=== PATIENT | male | born 1950 | race Caucasian/White ===

== ENCOUNTER → 2016-08-02 | Outpatient (REF) | payer BC ==
[2016-08-02 15:14] LABS: ALBUMIN 3.8 GM/DL (3.2-5.2); ALBUMIN/GLOBULIN RATIO 1.03 (1.00-1.93); ALKALINE PHOSPHATASE 70 U/L (45-117); ALT/SGPT 17 U/L (12-78); ANION GAP 7 MEQ/L (8-16); AST/SGOT 16 U/L (15-37); BILIRUBIN,TOTAL 0.6 MG/DL (0.2-1.0); BLOOD UREA NITROGEN 29 MG/DL (7-18); CALCIUM LEVEL 9.1 MG/DL (8.8-10.2); CARBON DIOXIDE LEVEL 30 MEQ/L (21-32); CHLORIDE LEVEL 104 MEQ/L (98-107); CHOLESTEROL LEVEL 177 MG/DL (<200); CREATININE FOR GFR 0.74 MG/DL (0.70-1.30); GLOMERULAR FILTRATION RATE > 60.0 (>49); GLUCOSE, FASTING 91 MG/DL (80-110); POTASSIUM SERUM 4.3 MEQ/L (3.5-5.1); SODIUM LEVEL 141 MEQ/L (136-145); TOTAL PROTEIN 7.5 GM/DL (6.4-8.2); TRIGLYCERIDES LEVEL 160 MG/DL (<150)
== END ==
LOC: M SFHCLACO 08:02
PROVIDERS: ATTEND Physician Assistant
DX: R97.20 Elevated prostate specific antigen [PSA] (principal); I10 Essential (primary) hypertension; E78.2 Mixed hyperlipidemia; F41.1 Generalized anxiety disorder; L40.0 Psoriasis vulgaris; F17.210 Nicotine dependence, cigarettes, uncomplicated

== ENCOUNTER → 2016-11-12 | Outpatient (CLI) | payer BC ==
[~2016-11-12] MED LIST: ALEV220T26 PO; CALC0.009 TOP; FISH1000 PO; NORCOTAB PO; PARO20TA3 PO
[2016-11-12 17:03] LABS: BASO % 0.4 % (0.0-1.0); EOS # 0.2 K/mm3 (0.0-0.50); EOS % 2.5 % (0.0-3.0); LARGE UNSTAINED CELL # 0.2 K/mm3 (0.0-0.4); LYMPH # 1.6 K/mm3 (1.5-4.5); LYMPH % 16.2 % (24.0-44.0); MEAN CORPUSCULAR HEMOGLOBIN 33.1 pg (27.0-33.0); MEAN CORPUSCULAR HGB CONC 34.7 g/dl (32.0-36.5); MEAN CORPUSCULAR VOLUME 95.3 fl (80.0-96.0); MONO # 0.6 K/mm3 (0.0-0.8); MONO % 6.6 % (0.0-5.0); NEUTROPHILS # 6.9 K/mm3 (1.8-7.7); NEUTROPHILS % 72.3 % (36.0-66.0); PLATELET COUNT, AUTOMATED 394 k/mm3 (150-450); WHITE BLOOD COUNT 9.5 K/mm3 (4.0-10.0)
[2016-11-12 18:10] LABS: ERYTHROCYTE SEDIMENTATION RATE 13 mm/hr (0-20)
== END ==
LOC: M LAB 16:19
PROVIDERS: ATTEND Orthopaedic Surgery
DX: M25.552 Pain in left hip (principal)

== ENCOUNTER → 2016-11-21 | Outpatient (CLI) | payer BC ==
--- NOTE | 2016-11-21 13:41 | REP ---
TRIPLE PHASE BONE SCAN OF THE HIPS: Following the administration of 21.8 mCi technetium 99m MDP, patient's hips are imaged in the flow phase in the anterior and posterior projections. There is symmetrical blood flow bilaterally. Immediate blood pool and 2-hour delayed images are performed of the hips in the anterior, posterior, both anterior and posterior oblique, and both lateral projections. There are photopenic areas in the proximal femurs bilaterally compatible with metallic prostheses. There is mild increased blood pooling and more intense increased delayed uptake in the greater trochanter of the proximal left femur adjacent to the photopenic prosthesis. No other definite abnormal uptake is seen in the visualized osseous structures. IMPRESSION: Mild increased blood pooling with focal increased delayed uptake in the greater trochanter of the proximal left femur. This is directly adjacent to a photopenic hip prosthesis. I cannot exclude some degree of loosening of the left hip prosthesis. Subacute stress fracture is also a possibility. Signed by Baljeet Hendricks MD 11/21/2016 04:56 P
== END ==
LOC: M RAD 08:33
PROVIDERS: ATTEND Orthopaedic Surgery
DX: M25.552 Pain in left hip (principal)
CPT/HCPCS: 78315; A9503

== ENCOUNTER → 2017-01-07 | Outpatient (CLI) | payer BC ==
[2017-01-07 11:08] LABS: MEAN CORPUSCULAR HEMOGLOBIN 31.8 pg (27.0-33.0); MEAN CORPUSCULAR HGB CONC 33.7 g/dl (32.0-36.5); MEAN CORPUSCULAR VOLUME 94.4 fl (80.0-96.0); RED CELL DISTRIBUTION WIDTH 13.4 % (11.5-14.5); WHITE BLOOD COUNT 10.9 10^3/uL (4.0-10.0)
[2017-01-07 11:18] LABS: INR 0.94
[2017-01-07 11:40] LABS: ALBUMIN 3.9 GM/DL (3.2-5.2); ALBUMIN/GLOBULIN RATIO 1.08 (1.00-1.93); ALKALINE PHOSPHATASE 73 U/L (45-117); ALT/SGPT 17 U/L (12-78); ANION GAP 4 MEQ/L (8-16); AST/SGOT 15 U/L (15-37); BILIRUBIN,TOTAL 0.4 MG/DL (0.2-1.0); BLOOD UREA NITROGEN 24 MG/DL (7-18); CALCIUM LEVEL 9.1 MG/DL (8.8-10.2); CARBON DIOXIDE LEVEL 31 MEQ/L (21-32); CHLORIDE LEVEL 107 MEQ/L (98-107); CREATININE FOR GFR 0.73 MG/DL (0.70-1.30); GLOMERULAR FILTRATION RATE > 60.0 (>49); GLUCOSE, FASTING 92 MG/DL (80-110); POTASSIUM SERUM 4.6 MEQ/L (3.5-5.1); SODIUM LEVEL 142 MEQ/L (136-145); TOTAL PROTEIN 7.5 GM/DL (6.4-8.2)
--- NOTE | 2017-01-07 12:24 | ECGEPIP ---
Stationary ECG Study [facility] Test Date: 2017-01-07 Pat Name: ABDI LUA Department: Room: - Gender: M Ncqa Specialist: RODRIGO : 1950 Requested By: Joni Delvalle Order Number: [id number] Reading MD: Gauri Sierra Measurements Intervals [place] Rate: 63 P: 38 UT: 160 QRS: 64 QRSD: 113 T: 49 QT: 419 QTc: 431 Interpretive Statements SINUS RHYTHM POSSIBLE INFERIOR MYOCARDIAL INFARCTION, Qs don't APPEAR PATHOLOGIC T WAVE ABN AGAIN SEEN C/W 06/03/15 MILD EARLY REPOLAR CHANGES Electronically Signed On 01-07-2017 12:24:00 EDT by Gauri Sierra
--- NOTE | 2017-01-08 01:35 | REP ---
Arthritis. Technique: PA and lateral. Comparison: 03/05/2008. Findings: Mediastinum and cardiac silhouette are within normal limits. Lung rizvi demonstrate chronic COPD and scattered scarring / interstitial changes. No acute consolidation, effusion, or pneumothorax. Skeletal structures are intact. Impression: Advanced COPD and emphysematous changes. Signed by Reynaldo Mccullough MD 01/08/2017 01:26 A
== END ==
LOC: M ADMPAT 09:45
PROVIDERS: ATTEND Orthopaedic Surgery
DX: Z01.818 Encounter for other preprocedural examination (principal); M16.12 Unilateral primary osteoarthritis, left hip

== ENCOUNTER → 2017-01-17 | Outpatient (CLI) | payer BC, MEDICARE ==
[~2017-01-17] MED LIST changes: +ISOVUE-370 76% 100ML VIAL (Q9967) As Ordered ONE
--- NOTE | 2017-01-18 04:50 | REP ---
Clinical: Microscopic hematuria and pulsatile abdominal mass. Technique: Axial precontrast, contrast enhanced, and delayed images of the abdomen and pelvis using 100 ml Isovue 370 intravenous contrast material with coronal and sagittal re-formations. Comparison: None. Findings: A partially thrombosed infrarenal abdominal aortic aneurysm begins approximately 2.2 cm below the solitary left renal artery (two right renal arteries identified) and extends through the bilateral common iliac arteries to their bifurcations. Aneurysm measures approximately 6.8 x 6.9 cm maximal diameter with the right iliac artery measuring 3.4 cm diameter and the left iliac artery measuring 3.7 cm diameter. Partially calcified intima and atherosclerotic changes throughout the aorta and iliac arteries noted. No periaortic stranding, inflammatory changes or fluid is identified. The celiac axis, and superior mesenteric artery along with the solitary left and two right renal arteries appear normal and demonstrate appropriate enhancement without atherosclerotic changes or narrowing/stenosis. The inferior mesenteric artery is difficult to identify along the root of the above-mentioned aneurysm. The kidneys demonstrate bilateral cysts measuring up to 4.4 cm at the lower pole right kidney and 2 cm mid pole left kidney. There is no associated hydroureteronephrosis, intrarenal or obstructing ureteral calculi and no perinephric stranding, renal mass lesion identified. The prostate gland is enlarged with mass effect on the base of the bladder but incompletely evaluated due to significant metallic streak artifact from bilateral hip prostheses. Liver, spleen, pancreas, gallbladder, and bilateral adrenal glands are normal. The enteric system is without obstruction or acute inflammatory process. Colonic and sigmoid diverticulosis noted without acute diverticulitis. No ascites. No free air. No obvious intraperitoneal or retroperitoneal adenopathy. Surrounding musculoskeletal structures demonstrate age-related degenerative changes without focal osseous abnormality. Lung bases demonstrate chronic interstitial changes and mild emphysematous disease. Impression: 1. Large partially thrombosed infrarenal abdominal aortic aneurysm extending through the bilateral common iliac arteries and measuring 6.9 cm maximal diameter. No associated periaortic inflammatory stranding or fluid currently identified. 2. Bilateral renal cysts measuring up to 4.4 cm. No evidence for nephroureterolithiasis or hydroureteronephrosis. 3. Diverticulosis without acute diverticulitis. 4. Enlarged prostate gland incompletely evaluated. Signed by Reynaldo Mccullough MD 01/18/2017 04:41 A
== END ==
LOC: M RAD 13:32
PROVIDERS: ATTEND Family Medicine
DX: R31.29 Other microscopic hematuria (principal); R19.00 Intra-abdominal and pelvic swelling, mass and lump, unspecified site

== ENCOUNTER 2017-01-23 12:41 | Inpatient (IN) | payer BC, MEDICARE ==
[~2017-01-23] VITALS: Ht 182.9 cm; Wt 77.9 kg
[~2017-01-23 12:41] MED LIST changes: -ISOVUE-370 76% 100ML VIAL (Q9967) As Ordered ONE; -NORCOTAB PO
[2017-01-23] MEDS ORDERED: MOM 30ML SUSPENSION UDC PO PRN (13:30)
[2017-01-23] MEDS ORDERED: BISACODYL 10 MG SUPP PR PRN (13:30)
[2017-01-23 13:50] VITALS: BP 133/73
[2017-01-23 14:52] LABS: INR 1.03
[2017-01-23 14:53] LABS: BASO % 0.3 % (0.0-1.0); EOS # 0.2 10^3/uL (0.0-0.50); EOS % 1.3 % (0.0-3.0); IMMATURE GRANULOCYTE % 0.3 % (0-0); LYMPH # 1.5 10^3/uL (1.5-4.5); LYMPH % 12.6 % (24.0-44.0); MEAN CORPUSCULAR HEMOGLOBIN 31.7 pg (27.0-33.0); MEAN CORPUSCULAR HGB CONC 33.7 g/dl (32.0-36.5); MEAN CORPUSCULAR VOLUME 94.2 fl (80.0-96.0); MONO % 7.8 % (0.0-5.0); NEUTROPHILS # 9.5 10^3/uL (1.8-7.7); NEUTROPHILS % 77.7 % (36.0-66.0); PLATELET COUNT, AUTOMATED 321 10^3/uL (150-450); RED CELL DISTRIBUTION WIDTH 13.1 % (11.5-14.5); WHITE BLOOD COUNT 12.2 10^3/uL (4.0-10.0)
[2017-01-23 15:01] LABS: ANION GAP 8 MEQ/L (8-16); BLOOD UREA NITROGEN 18 MG/DL (7-18); CALCIUM LEVEL 9.2 MG/DL (8.8-10.2); CARBON DIOXIDE LEVEL 29 MEQ/L (21-32); CHLORIDE LEVEL 104 MEQ/L (98-107); CREATININE FOR GFR 0.67 MG/DL (0.70-1.30); GLOMERULAR FILTRATION RATE > 60.0 (>49); GLUCOSE, FASTING 92 MG/DL (80-110); POTASSIUM SERUM 4.4 MEQ/L (3.5-5.1); SODIUM LEVEL 141 MEQ/L (136-145)
[2017-01-23 16:00] VITALS: BP 130/79
[2017-01-23 20:00] VITALS: BP 112/70
[2017-01-23] MEDS: SENOKOT S TAB PO SCH (20:58)
[2017-01-23] MEDS: FAMOTIDINE 20 MG TAB PO SCH (20:58)
[2017-01-23] MEDS: DOCUSATE SODIUM 100 MG CAP PO SCH (20:58)
--- NOTE | 2017-01-23 21:05 | ECGEPIP ---
Stationary ECG Study [facility] Test Date: 2017-01-23 Pat Name: ABDI LUA Department: Room: [place] [address] Gender: M Actuarial Clerk: LIDIA : 1950 Requested By: Agustín Albarran Order Number: [id number] Reading MD: Agustín Aparicio Measurements Intervals [place] Rate: 56 P: 27 MN: 162 QRS: 73 QRSD: 114 T: 63 QT: 448 QTc: 434 Interpretive Statements Sinus bradycardia Prominent precordial voltage with ST/T-wave abnormalities Probable LVH Small inferior Q waves, could not rule out prior inferior injury. No change from 01/07/17 Electronically Signed On 01-23-2017 21:05:06 EDT by Agustín Aparicio
--- NOTE | 2017-01-23 23:10 | ECHO ---
DATE OF PROCEDURE: 01/23/2017 AGE: 66 GENDER: Male HEIGHT: 72 inches WEIGHT: 170 pounds BODY SURFACE AREA: 1.99 m2 PATIENT LOCATION: Inpatient, ICU, room 3201 REFERRING PHYSICIAN: Agustín Morse MD INDICATION: Abnormal EKG. 2-D MEASUREMENTS: RV; 4.2 cm LV: 4.9 cm Septum: 1.2 cm Posterior wall: 1.2 cm Aortic root: 3.7 cm LA: 3.6 cm LVEF: 65% DOPPLER MEASUREMENTS: AV: 2.3 m/s LVOT: 0.95 m/s LVOT diameter: 2.5 cm Mean AV gradient: 12 mmHg MV-E: 52, A: 89, EA ratio: 0.6 Early mitral deceleration time: 384 ms E prime: 5, A prime: 12, E/E prime ratio: 10.5 PV: 0.8 m/s Pulmonary artery acceleration time: 127 ms RVSP: 32 mmHg IVC: 1.5 cm COMMENTS: Normal sinus rhythm without interventricular conduction disturbance. Left atrial size upper limits of normal. Normal left ventricular size. Right heart chamber sizes were also upper limits of normal. Left ventricle (LV) wall thickness was upper limits of normal to slightly hypertrophied symmetrically. On real-time imaging from the parasternal and apical projections wall motion was symmetrical and normal to hyperkinetic. Slightly thickened mitral annulus, but normal leaflet thickness and excursion with no posterior systolic buckling. Three equal size aortic cusps with asymmetrical thickening of the left and right coronary cusps with question of slight reduction in cusp separation. Normal aortic root size. No apparent intracardiac mass or pericardial effusion. Color flow Doppler study taken from the parasternal and apical projection showed mild to moderate aortic, very mild mitral and mild tricuspid insufficiency. Guided continuous wave Doppler of his aortic valve and pulsed Doppler study of his LV outflow tract taken from the apical long axis and five chamber projection showed a mildly increased peak systolic velocity and mean gradient with dimensionless index of 0.43 - in keeping with some mild calcific aortic stenosis. Pulsed and continuous wave Doppler of his LV inflow tract taken from the apical four-chamber projection showed normal diastolic filling velocities against mitral stenosis. There was more prominent late diastolic/atrial dependent filling pattern. Diastolic dysfunction was confirmed by a prolonged early mitral deceleration time and tissue Doppler of his mitral annulus. However, current estimated mean left atrial pressure was upper limits of normal. Pulsed continuous wave Doppler of his pulmonary trunk showed a normal peak systolic velocity against RV outflow tract obstruction. Pulmonary artery acceleration time was also normal against an elevated pulmonary vascular resistance. Guided continuous wave Doppler of his tricuspid valve allowed our estimation of his right ventricular systolic pressure (upper limits of normal to mildly increased). Normal IVC size and collapse against an elevated central venous pressure. CONCLUSIONS: Borderline concentric left ventricle hypertrophy with preserved systolic function. Left atrial size upper limits of normal with Doppler evidence of an impairment of LV diastolic function but currently normal estimated mean left atrial pressure. Borderline increased right heart chamber sizes with normal wall motion and Doppler evidence of borderline to mildly increased pulmonary arterial pressure. Normal IVC size and collapse against an elevated central venous pressure. Asymmetrical calcific aortic stenosis of a mild degree with mild - moderate insufficiency. Normal aortic root size. Mildly thickened mitral annulus with very mild insufficiency.
[2017-01-24] VITALS (7 sets, daily range): BP systolic 110–146; BP diastolic 57–87
[2017-01-24] MEDS: ACETAMINOPHEN TAB 650MG DOSE (2X325MG) PO PRN (04:39)
[2017-01-24] MEDS: DOCUSATE SODIUM 100 MG CAP PO SCH ×2 (08:19→21:57)
[2017-01-24] MEDS: FAMOTIDINE 20 MG TAB PO SCH ×2 (08:19→21:57)
[2017-01-24] MEDS: SENOKOT S TAB PO SCH ×2 (08:20→21:57)
[2017-01-24] MEDS ORDERED: HEPARIN SOD (PORCINE) 5000 UNITS/ML VIAL As Ordered ONE ×4 (16:14→19:17)
--- NOTE | 2017-01-24 16:20 | HPEPDOC ---
General Date of Admission Jan 23, 2017 at 13:33 Primary Care Physician: Lamberto Hickey M.D. Attending Physician: Agustín Morse MD Chief Complaint The patient is a 66-year-old male with 6.9 cm AAA. Source: Patient Exam Limitations: No limitations Timing/Duration: Unsure Severity: Severe Associated Symptoms: Denies Symptoms History of Present Illness Patient is a 66-year-old male who was undergoing evaluation for preoperative assessment for a left hip revision when it was noted that the patient had a palpable aneurysm on his abdominal exam. Patient was sent for a CT scan which demonstrated a 6.9 cm infrarenal abdominal aortic and rhythm and bilateral common iliac artery aneurysms. Patient was evaluated and noted to be a good candidate for an endovascular abdominal aortic aneurysm repair. Patient was admitted to the hospital immediately from the office for endovascular abdominal aortic aneurysm repair. Home Medications Scheduled Calcipotriene (Calcipotriene) 0.005 % Cre, 0 TOP DAILY, (Reported) Fish Oil (Fish Oil) 1,000 Mg Cap, 360 MG PO DAILY, (Reported) Paroxetine (Paroxetine HCl) 20 Mg Tab, 20 MG PO DAILY, (Reported) Allergies Coded Allergies: Bupivacaine (Verified Adverse Reaction, Intermediate, DECREASED HR, 06/07/15 ) Past Medical History Medical History COPD Coronary artery disease Anxiety Surgical History Varicose vein stripping Bilateral hip replacements right knee arthroscopically Multiple inguinal hernia repairs Umbilical hernia repair Femoral hernia repair Prostate biopsy Family History Father is with a history of coronary artery disease, prostate cancer. Mother is with a history of coronary artery disease Brother with a history of coronary artery disease Sr. with a history of coronary artery disease and diabetes Social History * Smoker: current smoker, greater than 1 pack/day, cigarettes Alcohol: occationally Drugs: denies Recent Travel/Sick Contacts: Denies: Recent travel, Recent sick contacts Psychosocial History: No pertinent psych hx, Anxiety Review of Symptoms Constitutional: Denies: Chills, Fever, Malaise, Night Sweats, Weakness, Fatigue , Weight Loss, Lethargy, Other Eyes: Denies: Pain, Vision change, Conjunctivae inflammation, Eyelid inflammation, Redness, Other ENT: Denies: Head Aches, Ear Pain, Dysphagia, Sinus Congestion, Post Nasal Drip , Sore Throat, Epistaxis, Other Symptoms Skin: Denies: Rash, Lesions, Jaundice, Bruising, Itching, Dry, Breakdown, Nail Changes, Other Pulmonary: Reports: Dyspnea, Denies: Cough, Pleuritic Chest Pain, Other Symptoms Cardiovascular: Denies: Chest Pain, Palpitations, Orthopnea, Paroxysmal Noc. Dyspnea, Edema, Lt Headedness, Other Symptoms Gastrointestinal: Denies: Nausea, Vomiting, Abdominal Pain, Diarrhea, Constipation, Melena, Hematochezia, Other Symptoms Genitourinary: Denies: Dysuria, Frequency, Incontinence, Hematuria, Retention, Other Symptoms Hematologic: Denies: Bruising, Bleeding Excessively, Petecchia, Purpura, Enlarged Lymph Nodes, Other Hematologic Endocrine: Denies: Polydipsia, Polyphagia, Polyuria, Heat Intolerance, Cold Intolerance, Other Endocrine Sx Musculoskeletal: Reports: Joint Pain, Denies: Neck Pain, Back Pain, Shoulder Pain, Arm Pain, Hand Pain, Leg Pain, Foot Pain, Muscle Pain, Spasms, Other Symptoms Neurological: Denies: Weakness, Numbness, Incoordination, Change in speech, Confusion, Seizures, Other Symptoms Psych: Denies: Mood Normal, Anxiety, Depression, Memory Issues, Thoughts of Self Harm, Anger, Thoughts of Harming Other, Other Psych Physical Examination General Exam: Positive: Alert, No Acute Distress Eye Exam: Positive: PERRLA, EOMI ENT Exam: Positive: Atraumatic, Mucous membr. moist/pink, Pharynx Normal Neck Exam: Positive: Supple, +2 carotid pulse wo bruit Chest Exam: Positive: Clear to auscultation, Normal air movement Heart Exam: Positive: Rate Normal, Normal S1, Normal S2 Telemetry: Positive: No significant arrhythmia Abdomen Exam: Positive: Normal bowel sounds Extremity Exam: Negative: Clubbing, Cyanosis, Edema, Normal pulses, Tenderness , Swelling, Other Skin Exam: Positive: Nl turgor and temperature, Negative: Rash, Breakdown, Lesion, Pruritus, Other skin issue Neuro Exam: Positive: Normal Gait, Normal Speech, Strength at 5/5 X4 ext, Cranial Nerves 3-12 NL, Reflexes 2+ Psych Exam: Positive: Mental status NL, Mood NL, Oriented x 3 Vital Signs Vital Signs Date Time Temp Pulse Resp B/P (MAP) Pulse Ox O2 Delivery O2 Flow Rate FiO2 01/24/17 12:00 99.4 66 19 135/87 (103) 95 Room Air Plan / VTE VTE Prophylaxis Ordered?: Yes Plan Plan Patient is a 58-year-old male with an 6.9 cm abdominal aortic aneurysm which is amenable to endovascular repair. Risks benefits and alternative treatment options were discussed with the patient. Benefits included but were not limited to repair of aortic aneurysm and prevention of rupture and . Alternative treatment options included but were not limited to no intervention. Risks included but were not limited to infection, bleeding, renal failure requiring hemodialysis, possible need for open abdominal aortic aneurysm repair, cerebrovascular accident, myocardial infarction, pulmonary embolus, deep venous thrombosis, retroperitoneal hematoma, loss of limb, loss of life and poor outcome. IVF: Initiate Diet: Make NPO Activity: Continue Current Pt and Family Services: Home Care Diagnostics: Check Labs, EKG, TTE Anticipated Discharge: Home Agustín Morse MD Jan 24, 2017 16:20
[2017-01-24] MEDS ORDERED: ISOVUE-300 61% 50ML VIAL (Q9967) As Ordered ONE ×2 (16:23→18:20)
[2017-01-24] MEDS ORDERED: MIDAZOLAM INJ 2 MG/2 ML VIAL (J2250) As Ordered ONE (16:39)
[2017-01-24] MEDS ORDERED: fentaNYL 100 MCG/2 ML INJECTION (J3010) As Ordered ONE (16:40)
[2017-01-24] MEDS ORDERED: PROPOFOL 500 MG/50 ML VIAL As Ordered ONE (16:41)
[2017-01-24] MEDS ORDERED: LIDOCAINE 2% INJ 100 MG/5 ML SDV (FOR ANES.) As Ordered ONE (16:44)
[2017-01-24] MEDS ORDERED: LIDOCAINE 1% MDV INJ 50 ML VIAL As Ordered ONE (17:50)
[2017-01-24] MEDS ORDERED: ceFAZolin 2 GM/D5W 50 ML IV BAG (J0690) As Ordered ONE (18:06)
[2017-01-24] MEDS ORDERED: PROPOFOL 200 MG/20 ML VIAL As Ordered ONE (18:27)
[2017-01-24] MEDS ORDERED: NORCO, ANEXSIA 5/325MG TABLET (HYDROcodone/ACETAMINOPHEN) PO PRN (20:15)
[2017-01-24] MEDS ORDERED: PERCOCET 5MG/325MG TAB As Ordered ONE (20:27)
[2017-01-24] MEDS ORDERED: METOCLOPRAMIDE INJ 10MG/2ML VIAL (J2765) IV PRN (20:30)
[2017-01-24] MEDS ORDERED: ONDANSETRON 4MG/2ML VIAL (J2405) IV PRN (20:30)
[2017-01-24] MEDS ORDERED: PERCOCET 5MG/325MG TAB PO PRN (20:30)
[2017-01-24] MEDS ORDERED: LR 1,000 ML IV SCH (20:30)
[2017-01-24] MEDS ORDERED: fentaNYL 100 MCG/2 ML INJECTION (J3010) IV PRN (20:30)
[2017-01-24] MEDS: LR 1,000 ML IV SCH (21:58)
[2017-01-25] VITALS (9 sets, daily range): BP systolic 104–173; BP diastolic 63–74
[2017-01-25 05:37] LABS: MEAN CORPUSCULAR HEMOGLOBIN 31.3 pg (27.0-33.0); MEAN CORPUSCULAR HGB CONC 33.8 g/dl (32.0-36.5); MEAN CORPUSCULAR VOLUME 92.5 fl (80.0-96.0); PLATELET COUNT, AUTOMATED 243 10^3/uL (150-450); RED CELL DISTRIBUTION WIDTH 12.8 % (11.5-14.5); WHITE BLOOD COUNT 16.1 10^3/uL (4.0-10.0)
[2017-01-25 05:54] LABS: ANION GAP 8 MEQ/L (8-16); BLOOD UREA NITROGEN 16 MG/DL (7-18); CALCIUM LEVEL 8.4 MG/DL (8.8-10.2); CARBON DIOXIDE LEVEL 26 MEQ/L (21-32); CHLORIDE LEVEL 105 MEQ/L (98-107); CREATININE FOR GFR 0.68 MG/DL (0.70-1.30); GLOMERULAR FILTRATION RATE > 60.0 (>49); GLUCOSE, FASTING 116 MG/DL (80-110); SODIUM LEVEL 139 MEQ/L (136-145)
[2017-01-25] MEDS ORDERED: ONDANSETRON 4MG/2ML VIAL (J2405) IV PRN (07:30)
[2017-01-25] MEDS: LR 1,000 ML IV SCH (07:50)
[2017-01-25] MEDS: PARoxetine 20 MG TAB PO SCH (08:34)
[2017-01-25] MEDS: SENOKOT S TAB PO SCH ×2 (08:35→21:23)
[2017-01-25] MEDS: FAMOTIDINE 20 MG TAB PO SCH ×2 (08:35→21:23)
[2017-01-25] MEDS: DOCUSATE SODIUM 100 MG CAP PO SCH ×2 (08:35→21:23)
[2017-01-25] MEDS ORDERED: SLF 3 ML SYR IV PRN (13:45)
[2017-01-25] MEDS: SLF 3 ML SYR IV SCH ×2 (14:00→21:23)
[2017-01-25] MEDS: ACETAMINOPHEN TAB 650MG DOSE (2X325MG) PO PRN (23:12)
[2017-01-26] MEDS: SLF 3 ML SYR IV SCH (05:28)
[2017-01-26] MEDS: ACETAMINOPHEN TAB 650MG DOSE (2X325MG) PO PRN (05:36)
[2017-01-26 05:56] LABS: MEAN CORPUSCULAR HEMOGLOBIN 31.4 pg (27.0-33.0); MEAN CORPUSCULAR VOLUME 92.5 fl (80.0-96.0); PLATELET COUNT, AUTOMATED 232 10^3/uL (150-450); RED CELL DISTRIBUTION WIDTH 12.6 % (11.5-14.5); WHITE BLOOD COUNT 16.7 10^3/uL (4.0-10.0)
[2017-01-26 06:00] VITALS: BP 127/67
[2017-01-26 06:14] LABS: ANION GAP 7 MEQ/L (8-16); BLOOD UREA NITROGEN 13 MG/DL (7-18); CALCIUM LEVEL 8.5 MG/DL (8.8-10.2); CARBON DIOXIDE LEVEL 27 MEQ/L (21-32); CHLORIDE LEVEL 104 MEQ/L (98-107); CREATININE FOR GFR 0.68 MG/DL (0.70-1.30); GLOMERULAR FILTRATION RATE > 60.0 (>49); GLUCOSE, FASTING 109 MG/DL (80-110); SODIUM LEVEL 138 MEQ/L (136-145)
[2017-01-26] MEDS: PARoxetine 20 MG TAB PO SCH (08:19)
[2017-01-26] MEDS: SENOKOT S TAB PO SCH (08:19)
[2017-01-26] MEDS: FAMOTIDINE 20 MG TAB PO SCH (08:19)
[2017-01-26] MEDS: DOCUSATE SODIUM 100 MG CAP PO SCH (08:19)
[2017-01-26] MEDS ORDERED: NORCOTAB PO (09:24)
--- NOTE | 2017-02-08 12:47 | RO ---
DATE OF PROCEDURE: 01/24/2017 PREPROCEDURE DIAGNOSIS: 6.9 cm abdominal aortic aneurysm, right common iliac artery aneurysm, left common iliac artery aneurysm. POSTPROCEDURE DIAGNOSIS: 6.9 cm abdominal aortic aneurysm, right common iliac artery aneurysm, left common iliac artery aneurysm. PROCEDURE: Endovascular abdominal aortic aneurysm repair with an SURGEON: Tammy Morse MD HEALTHCARE SCIENCE SPECIALIST: None. ANESTHESIA: Local MAC. PROCEDURE: Endovascular abdominal aortic aneurysm repair with an Endurant IIs bifurcated endograft with a 36 x 14 x 103 bifurcated graft deployed by the right femoral approach, bilateral femoral arterial exposures, left iliac limb extension with a 16 x 16 x 124 iliac limb, left iliac limb extension with a 16-28 x 124 iliac limb, right iliac limb extension with a 16-28 x 156 flared Endurant iliac limb. INDICATION: The patient is a 66-year-old male who was seen and evaluated for hip surgery who was found to have a 6.9 cm abdominal aortic aneurysm, as well as bilateral common iliac artery aneurysms. The patient was evaluated and felt to be a good candidate for endovascular. Risks, benefits and alternative treatment options were discussed with the patient. ESTIMATED BLOOD LOSS: 200 mL IV FLUIDS: 1200 mL HEPARIN: 7000 units, followed by 2000 unit bolus. URINE OUTPUT: 200 mL via [place]. COMPLICATIONS: None DRAINS: None SPECIMENS: None IMPLANTS: Endurant IIs bifurcated endograft measuring 36 x 14 x 103 via right femoral approach, left iliac limb extension with a 16 x16 x 1.4 and 16-28 x 124 flared Endurant iliac limb, right iliac limb extension with a 16-28 x 156 flared Endurant iliac limb. FLUORO TIME: 60 minutes and 18 seconds. CONTRAST: 75 mL. DESCRIPTION OF PROCEDURE: The patient was taken to the operating room, placed supine on the operating room table and bilateral open femoral exposures were performed. Sheath to wires were then placed into the femoral arteries, which had been controlled proximal to distal using . The patient was given heparin. The graft was then placed below the level of the renal arteries under serial aortograms performed confirming intrarenal positioning. The contralateral limb was cannulated and then extended using two Endurant iliac limbs, a 16-16 x 124 and a 16-28 x 124 extending the limbs down to the bifurcation of the external and internal iliac arteries. The right iliac limb was extended with a 16-28 x 156 Endurant iliac limb down to the bifurcation of the external and internal iliac arteries. Final angiogram showed the renal arteries to be widely patent with good flow to the graft and into both iliac limbs. The femoral arteries were then closed using #6-0 Prolene suture to close the arteriotomies. The deeper layer was closed with #2-0 Vicryl. The skin was closed with shekhar. All instrument, sponge and needle counts were correct at the end of the case. There were no complications. Dr. Morse was present for and directed the entire case. The patient was transferred to the recovery room, awake, alert, extubated and in stable condition. RADIOLOGIC SUPERVISION INTERPRETATION: The initial aortogram showed the aorta to be widely patent. There was aneurysmal aorta and iliac arteries. The graft was placed below the level of the renal arteries with serial aortograms performed to ensure infrarenal positioning, the contralateral limb was cannulated and then extended using a 16-16 x 124 and a 16-28 x 124 Endurant iliac limb. The right iliac limb was extended with a 16-28 x 156 Endurant iliac limb. Final angiogram showed the renal artery to be widely patent with good flow through the graft in both iliac limbs and into the external and internal iliac arteries bilaterally.
--- NOTE | 2017-02-11 11:53 | DSES ---
DATE OF ADMISSION: 01/23/2017 DATE OF DISCHARGE: 01/26/2017 ADMITTING DIAGNOSIS: Abdominal aortic aneurysm. DISCHARGE DIAGNOSIS: Abdominal aortic aneurysm. PROCEDURE: Endovascular abdominal aortic aneurysm repair. HOSPITAL COURSE: The patient was admitted and underwent an endovascular abdominal aortic aneurysm repair and did well. Discharged on 01/26/2017 with instructions to followup with me in the office.
== END 2017-01-26 11:37 | disposition home or self-care (01) | DRG 173 ==
LOC: M ICU 13:33 → M MSPAV 01-25 14:15
PROVIDERS: ADMIT Surgery Vascular Surgery; ATTEND Surgery Vascular Surgery
PROC: 04V03DZ Restriction of Abdominal Aorta with Intraluminal Device, Percutaneous Approach (ICD-10-PCS; principal; 2017-01-24 14:11)
DX: I71.4 Abdominal aortic aneurysm, without rupture (principal); I72.3 Aneurysm of iliac artery; J44.9 Chronic obstructive pulmonary disease, unspecified; I25.10 Atherosclerotic heart disease of native coronary artery without angina pectoris; F41.9 Anxiety disorder, unspecified; Z96.641 Presence of right artificial hip joint; Z96.642 Presence of left artificial hip joint; F17.210 Nicotine dependence, cigarettes, uncomplicated

== ENCOUNTER → 2017-02-20 | Outpatient (CLI) | payer BC, MEDICARE ==
[~2017-02-20] MED LIST changes: +NORCOTAB PO
[2017-02-20 16:00] LABS: BASO # 0.1 10^3/uL (0.0-0.2); BASO % 0.5 % (0.0-1.0); EOS # 0.3 10^3/uL (0.0-0.50); EOS % 2.4 % (0.0-3.0); IMMATURE GRANULOCYTE % 0.3 % (0-0); LYMPH # 1.8 10^3/uL (1.5-4.5); LYMPH % 16.5 % (24.0-44.0); MEAN CORPUSCULAR HEMOGLOBIN 30.6 pg (27.0-33.0); MEAN CORPUSCULAR HGB CONC 32.1 g/dl (32.0-36.5); MEAN CORPUSCULAR VOLUME 95.2 fl (80.0-96.0); MONO # 0.8 10^3/uL (0.0-0.8); MONO % 6.9 % (0.0-5.0); NEUTROPHILS # 8.1 10^3/uL (1.8-7.7); NEUTROPHILS % 73.4 % (36.0-66.0); PLATELET COUNT, AUTOMATED 421 10^3/uL (150-450); RED CELL DISTRIBUTION WIDTH 12.9 % (11.5-14.5)
[2017-02-20 16:12] LABS: INR 0.99
[2017-02-20 16:27] LABS: ALBUMIN 3.5 GM/DL (3.2-5.2); ALBUMIN/GLOBULIN RATIO 0.83 (1.00-1.93); ALKALINE PHOSPHATASE 88 U/L (45-117); ALT/SGPT 20 U/L (12-78); ANION GAP 6 MEQ/L (8-16); AST/SGOT 15 U/L (7-37); BILIRUBIN,TOTAL 0.2 MG/DL (0.2-1.0); BLOOD UREA NITROGEN 23 MG/DL (7-18); CALCIUM LEVEL 8.8 MG/DL (8.8-10.2); CARBON DIOXIDE LEVEL 32 MEQ/L (21-32); CHLORIDE LEVEL 103 MEQ/L (98-107); CREATININE FOR GFR 0.78 MG/DL (0.70-1.30); GLOMERULAR FILTRATION RATE > 60.0 (>49); GLUCOSE, FASTING 133 MG/DL (80-110); SODIUM LEVEL 141 MEQ/L (136-145); TOTAL PROTEIN 7.7 GM/DL (6.4-8.2)
== END ==
LOC: M LABDRAW1 14:02
PROVIDERS: ATTEND Family Medicine
DX: Z01.812 Encounter for preprocedural laboratory examination (principal)

== ENCOUNTER → 2017-02-25 | Outpatient (CLI) | payer BC ==
--- NOTE | 2017-02-25 11:48 | REP ---
Clinical: Abdominal aortic aneurysm. Comparison: 05/04/2015. Findings: Intraluminal aortoiliac stent is identified extending to the aortic bifurcation. Color evaluation demonstrates satisfactory flow through the stent. The excluded abdominal aorta demonstrates thrombus and continued flow and measures: Proximal aorta 5.1 x 4.7 cm. Mid aorta 6.9 x 6.6 cm. Distal aorta 3.2 x 5.8 cm. Right common iliac artery 2.6 x 3.2 cm. Left common iliac artery 2.8 x 3.1 cm. Impression: Patent abdominal aortic aneurysm with patent intraluminal aortic stent extending to the proximal bilateral common iliac arteries. Signed by Reynaldo Mccullough MD 02/25/2017 11:39 A
== END ==
LOC: M RAD 09:05
PROVIDERS: ATTEND Surgery Vascular Surgery
DX: I71.4 Abdominal aortic aneurysm, without rupture (principal)

== ENCOUNTER 2017-02-28 11:32 | Inpatient (IN) | payer BC, MEDICARE ==
--- NOTE | 2017-02-20 20:10 | HPE ---
DATE OF ADMISSION: 02/28/2017 HISTORY OF PRESENT ILLNESS: This is a pleasant male with continuing symptomatic left hip pain with a history of left hip osteoarthritis who is scheduled for a left hip arthroplasty revision and likely polyethylene exchange. He was rescheduled secondary to other medical issues. He was followed by Dr. Morse, and there was concern about some sort of aneurysm. The patient notes that he had a procedure to deal with this aneurysm, and now he has been cleared. This is hearsay. I do not have any reports yet from Dr. Morse and/or Dr. Hickey, although the patient states he has been cleared by both. I previously performed a preoperative history and physical on 01/17/2017, and the patient is denying any other change outside of the above-mention of aneurysm. ALLERGIES: MARCAINE previously made him bradycardic. MEDICAL MEDICATION LIST: Includes: - paroxetine HCl 20 mg one by mouth every day - calcipotriene 0.005% - Aleve 220 mg one capsule twice a day as needed - Additionally, he has a prescription for Coumadin to be taken the night before surgery. MEDICAL PROBLEM LIST: Includes: 1. Symptomatic left hip osteoarthritis. 2. Anxiety and depression. PAST SURGICAL HISTORY: Includes: 1. Hip replacement. 2. Hernia repair. 3. Meniscal repair. SOCIAL HISTORY: He is a current smoker but states he is down to like three cigarettes a day. Denies alcohol intake or illicit drugs. FAMILY HISTORY: Positive for arthritis. REVIEW OF SYSTEMS: Denies chest pain, shortness of breath, dyspnea on exertion, fever, chills, malaise, upper respiratory or urinary tract symptoms. PHYSICAL EXAMINATION: Blood pressure (BP) 144/86, temperature 97.4, height 70 inches, weight 180, body mass index (BMI) 25.8. He is a pleasant, overweight white male in no acute distress. He is alert and oriented times three. Mood and affect are appropriate. Left hip irritability through range; otherwise, benign, noninfectious looking bilateral lower extremities. Bowels soft, nontender times four. Chest rises symmetrically. Regular rate and rhythm. Lungs: Clear to auscultation. Neck: Supple. Negative jugular venous distention (JVD) or bruits. Normocephalic. Labs were reviewed. Urine auto was 12, BUN 24, anion gap 4, GFR was greater than 60. White count 10.1. Urine culture was reviewed and no growth of clinical significance, 1 organism. Nasal and sinus culture: Normal milly present. Chest x-ray: Advanced chronic obstructive pulmonary disease (COPD) and emphysematous changes, as read by Dr. Mccullough . EKG: Sinus rhythm, as read by Dr. Mark. Consent was reviewed by Dr. Delvalle, signed on 11/29/2016. IMPRESSION: 1. Continuing symptomatic left total hip arthroplasty with poly wear. 2. Patient consented for a left total hip arthroplasty revision per Dr. Joni Delvalle. Medical optimization per Dr. Hickey and Dr. Morse, which I have not seen their recent clearances. 3. yardage caller operating room (OR) 2 grams IV Kefzol in OR. 4. Sequential compression devices (SCD) and thromboembolic deterrent stockings (TEDs) in OR.
[2017-02-28] VITALS (7 sets, daily range): BP systolic 150–183; BP diastolic 80–93
[~2017-02-28] VITALS: Ht 182.9 cm; Wt 77.5 kg
[2017-02-28] MEDS ORDERED: LIDOCAINE 1% MDV 20ML VIAL SC ONE (12:00)
[2017-02-28] MEDS ORDERED: LR 1,000 ML IV ONE (12:00)
[2017-02-28] MEDS ORDERED: TRANEXAMIC ACID 100 MG/ML 10ML VIAL As Ordered ONE (12:57)
[2017-02-28] MEDS ORDERED: ceFAZolin 1GM INJ (J0690) As Ordered ONE (12:57)
[2017-02-28] MEDS ORDERED: MIDAZOLAM INJ 2 MG/2 ML VIAL (J2250) As Ordered ONE (13:02)
[2017-02-28] MEDS ORDERED: PROPOFOL 200 MG/20 ML VIAL As Ordered ONE ×3 (13:02→14:44)
[2017-02-28] MEDS ORDERED: fentaNYL 100 MCG/2 ML INJECTION (J3010) As Ordered ONE (13:02)
--- NOTE | 2017-02-28 13:03 | IPN ---
DATE: 02/28/2017 The patient is seen and examined. He wished to go ahead with a left total hip arthroplasty. He is still having some mild symptoms of some subluxation in the hip. He has polyethylene wear. He had his aneurysm repaired and was cleared for surgical treatment. He understands the nature of the procedure. The risks of bleeding, infection, damage to nerves, vessels, persistent pain, wear loosening, dislocation, leg length inequality, blood clots or medical problems, persistent soreness, , among others. He understands. We are hoping to just change the head and the polyethylene, but if there is something else loose that might require a bigger surgery.
[2017-02-28] MEDS ORDERED: ePHEDrine SULFATE 25 MG/5 ML(5MG/ML) SYRINGE As Ordered ONE (14:05)
[2017-02-28] MEDS ORDERED: PHENYLEPHRINE INJ 10MG/ML VIAL (J2370) As Ordered ONE (14:14)
[2017-02-28] MEDS ORDERED: MORPHINE 1MG/ML IN 0.9% NACL 100ML IV BAG As Ordered ONE (15:37)
[2017-02-28] MEDS ORDERED: ONDANSETRON 4MG/2ML VIAL (J2405) IV PRN ×3 (16:00)
[2017-02-28] MEDS ORDERED: MORPHINE 1MG/ML IN 0.9% NACL 100ML IV BAG IV PRN (16:00)
[2017-02-28] MEDS ORDERED: fentaNYL 100 MCG/2 ML INJECTION (J3010) IV PRN (16:00)
[2017-02-28] MEDS ORDERED: ACETAMINOPHEN TAB 650MG DOSE (2X325MG) PO PRN (16:00)
[2017-02-28] MEDS ORDERED: FLEET ENEMA PR PRN (16:00)
[2017-02-28] MEDS ORDERED: NALOXONE INJ 0.4 MG/1 ML VIAL (J2310) IV PRN (16:00)
[2017-02-28] MEDS ORDERED: diphenhydrAMINE INJ 50MG/ML VIAL (J1200) IV PRN (16:00)
[2017-02-28] MEDS ORDERED: EPIDURAL/PCA KEYS XX PRN (16:00)
[2017-02-28] MEDS ORDERED: NALBUPHINE HCL 10 MG/ML AMP (J2300) IV PRN (16:00)
[2017-02-28] MEDS ORDERED: LR 1,000 ML IV SCH ×2 (16:00)
--- NOTE | 2017-02-28 16:28 | CR ---
DATE OF SERVICE: 02/28/2017 PROGRESS NOTE/CONSULTATION HISTORY: Mr. Bowers is admitted for revision of hip. He is status post total hip arthroplasty and is scheduled for revision on the left. He is currently seen in recovery. He is awake, alert, and denies discomfort. Some twinges at the hip but otherwise doing well. He denies chest pain, dyspnea, cough, or nausea. CURRENT MEDICATIONS: - fish oil capsule one a day - Taclonex ointment twice a day for psoriasis. - Aleve 220 mg two tablets daily for arthritic pain - Paxil 20 mg daily for history of generalized anxiety disorder PAST MEDICAL HISTORY: Remarkable for: 1. Labile hypertension. I believe to be normal at high. High only during office visits. 2. History of emphysema via chest x-ray. 3. History of smoking, formerly a pack per day, now three cigarettes per day. 4. Status post endograft repair by Dr. 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 5. Mild aortic stenosis by echo in December 2016, mildly increased pulmonary artery systolic pressure. SURGICAL HISTORY: 1. Umbilical hernia and three inguinal hernia repairs. 2. Right knee cartilage repair in 2011. 3. Bilateral hip surgeries in 2003. 4. Vein strippings in 2000. 5. Prostate biopsy 2015. FAMILY HISTORY: Father of brain cancer, mother of heart disease. ALLERGIES: Patient has supposed history of allergy to MARCAINE. REVIEW OF SYSTEMS: Before coming to hospital was negative. No chest pain, nausea, palpitations, change in weight, fevers, chills, sweats, polyuria, polydipsia. No nausea, vomiting, constipation, dysuria, or fainting spells. No seizure disorders. Preoperative blood pressure is 132/70 on the office visit with a pulse of 90, oxygen saturation 97% on room air. Most recent vital signs preoperatively: 153/83, pulse 61, respiratory rate 18, 97.3 temperature. SOCIAL HISTORY: Continues to smoke about three cigarettes per day and alcohol use negative. PHYSICAL EXAMINATION: Patient is alert, pleasant, cooperative, conversant. Moves upper extremities without limitations. He is still recovering from spinal anesthesia. Oropharynx: Edentulous. No neck mass. No tracheal shift. Auscultation of the chest shows equal expansion. He has a 3/6 systolic murmur noted over the left sternal border and at the base. Rhythm is regular. Abdomen soft, flat, nontender. Bowel sounds are present. No guarding. No rebound. No distention. There is no bruising or bleeding in evidence. Neurologic exam: Normal movement of upper extremities. Cranial nerve are intact. No sensory deficit in upper extremities or face. Mental status: He is alert, oriented. Mood neutral. Lower extremities still affected by spinal anesthesia. LABORATORY DATA: Preoperative testing showed a white count of 11,000, hemoglobin 13.3. Differential was done as part of the preoperative, which showed 73% segmented neutrophils, eosinophils 2.4%, platelet count was normal at 421,000. Coagulation studies were normal. Prothrombin time and PTT were done preoperatively. These were normal. Sodium and potassium were normal as well as creatinine at 0.78. BUN was 23. Liver enzymes were within normal limits as well. Anion gap was 6 with a low [id number] ratio and a normal albumin level. Also he was noted to have a mild anemia, which is thrombocytic, normochromic with normal renal function. On January 25 his hemoglobin was normal at 15.2. A chest x-ray as not done as part of the preoperative testing at this time, but if we go back to 01/07/2017 in preparation for his vascular surgery, chest x-ray showed advanced emphysematous changes by report and also reported to show chronic obstructive pulmonary disease (COPD). Specifically, patient has relatively flat diaphragms. No cardiomegaly. Bony landmarks are intact and unremarkable other than mild kyphosis. Colonic gas can be seen immediately below the diaphragm on the lateral view. Some aorta tortuosity is suspected. Echocardiogram was done on January 23. Pertinent findings as mentioned above. Mild aortic sclerosis. Elevated pulmonary artery systolic pressure. Normal diastolic filling. There is some mitral stenosis. Borderline concentric left ventricular hypertrophy (LVH) with preserved systolic function. Aortic root was thought to be normal sized. EKG showed a sinus rhythm. Narrow initial negative deflection in II, III, and F. Probably LVH. IMPRESSION: Patient is status post left total hip revision. Seems to be doing well at this point. It does not look that he will require blood pressure management. Will resume his paroxetine that he takes for anxiety. He was on fish oil capsule as a daily measure before surgery. Will leave this off for now. Will also leave off his topical agent for control of his psoriasis. This agent can be resumed after discharge, which I anticipate will be fairly short. Patient might benefit from extra attention to so-called pulmonary toilet in view of his smoking history and emphysematous changes that are suggested by chest x-ray appearance.
[2017-02-28] MEDS ORDERED: WARFARIN SOD 5 MG TAB PO ONE (17:00)
--- NOTE | 2017-02-28 21:03 | RO ---
DATE OF PROCEDURE: 02/28/2017 PREOPERATIVE DIAGNOSIS: Left hip pain, polyethylene wear and some intermittent subluxation status post hip replacement 2003. POSTOPERATIVE DIAGNOSIS: Left hip pain, polyethylene wear and some intermittent subluxation status post hip replacement 2003. Fairly large cavities of osteolysis around the greater trochanter and proximal femur. PROCEDURE: Left hip revision total hip arthroplasty with revision of the head and polyethylene liner to a +8.5 36 ball and a standard +4 Hitchcock polyethylene with bone grafting around the acetabulum and around the proximal femur. SURGEON: Dr. Joni Delvalle [employer] SYSTEMS ADMINISTRATOR: Dr. Antoinette Garces ANESTHESIA: Spinal. ESTIMATED BLOOD LOSS: 200 mL. COMPLICATIONS: None. INDICATIONS: This is a 66-year-old man who about 13 years ago had a left total hip arthroplasty and had done well with it up until the recent months when he started having some discomfort and a sense that his hip was trying to shift at times. He had some asymmetric polyethylene wear, and a bone scan showed some increased uptake around the greater trochanter, which I was suspicious might represent some osteolysis. He wished to go ahead with a revision hip replacement. He understood the nature of this, the risks of bleeding, infection, damage to nerves, vessels, persistent pain, wear, loosening, dislocation, leg length inequality, blood clots, medical problems, fracture, among others. DESCRIPTION OF PROCEDURE: The patient was taken to the operating room and placed in the right lateral decubitus position on the Battiest positioner. All areas were padded appropriately. Left hip was prepped and draped in usual sterile fashion. A time-out was performed. I then created a longitudinal incision through the previous incision over the side of his hip. Sharp dissection was carried down through subcutaneous tissue, controlled hemostasis with the cautery. I then incised the fascia junior and gradually exposed the abductors. Approximately the anterior 40% of the abductors were divided off the anterior aspect of the femur. It was noted that he had a fairly significant amount of atrophy and even some pull off of this abductors along the midportion. We gradually exposed the femoral neck and the acetabulum, and the polyethylene as we gradually externally rotated the femur exposing the proximal femur. We then took great care in dissecting around the acetabulum, removing the osteolysis and the polyethylene wear debris around the acetabulum in its entirety, exposing the entire polyethylene. Controlled hemostasis with the cautery. We then dislocated the hip and removed the femoral head. It was evident that there was significant osteolysis around the proximal femur and in a cavitary area around the greater trochanter above the prosthesis and extending down below it, which was carefully curetted out and irrigated. There was also another large pocket along the medial calcar, which was carefully curetted out back to stable bone, and there was a solid shell of bone remaining. We did decide to go ahead bone graft this. The acetabular liner was removed with the polyethylene removal device and the apex hole eliminator was removed, and it was evident that there was also a large cavity behind the acetabular component. The acetabular component was well seated and fixed. We did curette this cystic material and polyethylene wear debris from behind the acetabulum and irrigated it out copiously with antibiotic irrigation. We then injected some DBX bone graft substitute in the hole, which filled this defect nicely. The apex hole eliminator was then replaced. We carefully irrigated and then replaced the locking ring and the polyethylene liner with a 62 x 36 neutral liner. We had trialed a neutral liner first and did a hip reduction with various different neck lengths and we were very pleased with the 8.5 36 ball and the neutral liner. We did not feel that we needed the 10 degrees liner. So, the actual liner was then inserted after the ring was replaced, and we impacted it down to make sure it was well seated. I then placed a [place] around the lip of the acetabular liner, and it was well seated and secure. We then directed our attention back to the proximal femur, and we had selected the 8.5 neck length with a 36 ball; we dried the taper and impacted this ball on. We also bone grafted these defects around the proximal femur with a combination of 5 mL of DBX and 15 mL of crushed cancellus bone graft. This filled the defects nicely. I placed some of DBX in at the end just to help contain the bone graft and the defects. Copious irrigation had been performed. We were very pleased with the position and stability of the hip. He had minimal shuck in full extension. Excellent stability in external rotation, extension and excellent stability in flexion and internal rotation. Final irrigation was performed. I did use some of the TXA solution. We had repaired the abductor back with a couple stitches being placed through the bone and I did my best to repair the somewhat deficient abductor that was along the midportion of the trochanter. The more superior and inferior portions along the trochanter had reasonably good tissue, and this was able to be repaired with #1 Vicryl suture. Then irrigated, repaired the fascia junior with interrupted #1 Vicryl suture and a running Stratafix #1 suture. This was a watertight closure. I did put the hip through a range of motion, again was very pleased with the stability and the soft tissue repair. Irrigated, closed the subcu with #2-0 Vicryl and the skin with shekhar. Sterile dressing was applied, and he was taken to recovery in stable condition. His leg length appeared to be symmetric postoperatively. The plan will be routine postop for hip arthroplasty. I think we will allow weightbearing as tolerated and postoperative IV antibiotics etc. The wet process assistant head miller was instrumental in holding retractors and assisting in reducing and dislocating the hip, and assisting with dissection around the acetabulum and the proximal femur, and assisting with the bone grafting and wound closure. He was also instrumental in helping make decisions along the way.
[2017-03-01] VITALS: BP 132/62
[2017-03-01 06:00] VITALS: BP 128/62
[2017-03-01 07:59] LABS: MEAN CORPUSCULAR HEMOGLOBIN 31.4 pg (27.0-33.0); MEAN CORPUSCULAR HGB CONC 34.1 g/dl (32.0-36.5); PLATELET COUNT, AUTOMATED 313 10^3/uL (150-450); RED CELL DISTRIBUTION WIDTH 13.3 % (11.5-14.5); WHITE BLOOD COUNT 11.8 10^3/uL (4.0-10.0)
[2017-03-01] MEDS: ALBUTEROL SULFATE 2.5 MG/0.5 ML INH NEB SOLN NEB SCH ×4 (08:00→23:49)
[2017-03-01 08:22] LABS: ALBUMIN 2.8 GM/DL (3.2-5.2); ALKALINE PHOSPHATASE 70 U/L (45-117); ALT/SGPT 13 U/L (12-78); ANION GAP 7 MEQ/L (8-16); AST/SGOT 13 U/L (7-37); BILIRUBIN,TOTAL 0.3 MG/DL (0.2-1.0); BLOOD UREA NITROGEN 19 MG/DL (7-18); CALCIUM LEVEL 8.7 MG/DL (8.8-10.2); CARBON DIOXIDE LEVEL 29 MEQ/L (21-32); CHLORIDE LEVEL 103 MEQ/L (98-107); CREATININE FOR GFR 0.82 MG/DL (0.70-1.30); GLOMERULAR FILTRATION RATE > 60.0 (>49); GLUCOSE, FASTING 105 MG/DL (80-110); POTASSIUM SERUM 4.1 MEQ/L (3.5-5.1); SODIUM LEVEL 139 MEQ/L (136-145); TOTAL PROTEIN 6.8 GM/DL (6.4-8.2)
--- NOTE | 2017-03-01 08:35 | IPNPDOC ---
Subjective Date Seen The patient was seen on 03/01/17. Subjective Chief Complaint/HPI The patient is a 66-year-old male admitted with a reason for visit of Complication Left Total Hip Implant. Events since last encounter Developed hypoxemai overnight - improved with oxygen. Denies SOB or cough. Has some nausea with vomiting yesterday Constitutional: Denies: Chills, Fever Pulmonary: Denies: Dyspnea, Cough Cardiovascular: Denies: Chest Pain, Palpitations Gastrointestinal: Reports: Nausea, Vomiting, Denies: Abdominal Pain, Diarrhea, Constipation Objective Physical Examination General Exam: Positive: Alert, No Acute Distress Chest Exam: Positive: Diminished, Negative: Rales, Rhonchi, Wheezing Heart Exam: Positive: Rate Normal, Regular Rhythm, Murmurs (DAYLIN at apex) Abdomen Exam: Positive: Normal bowel sounds, Soft, Negative: Tenderness Extremity Exam: Negative: Edema Assessment /Plan Problems (1) Hypoxemia Status: Acute Problem Text: Diminished lung sounds on exam today - likely related to advanced COPD/emphysema Hypoxemia likely related to underlying COPD possibly underlying TERRENCE and anesthesia and narcotics Get CXR Cont O2 via NC Add nebs Encourage IS (2) COPD (chronic obstructive pulmonary disease) Status: Chronic Problem Text: Normally does not have dyspnea or chronic cough Not on inhalers normally No wheezing currently (3) Nicotine abuse Status: Chronic Response to Treatment: Stable (4) Mild aortic stenosis Status: Chronic Response to Treatment: Stable (5) HTN (hypertension) Status: Chronic Response to Treatment: Stable Plan/VTE VTE Prophylaxis Ordered?: Yes (Coumadin per ortho) VS, I&O, 24H, Fishbone Vital Signs/I&O Vital Signs Date Time Temp Pulse Resp B/P (MAP) Pulse Ox O2 Delivery O2 Flow Rate FiO2 03/01/17 06:00 98.7 78 15 128/62 (84) 96 Nasal Cannula 2.0 I&O- Last 24 Hours up to 6 AM 03/02/17 06:00 Intake Total 50 ml Balance 50 ml Laboratory Data 24H LABS Laboratory Tests 2 03/01/17 07:40: Nucleated Red Blood Cells % (auto) 0.0, Anion Gap 7L, Glomerular Filtration Rate > 60.0, Blood Urea Nitrogen 19H, Creatinine 0.82, Sodium Level 139, Potassium Level 4.1, Chloride Level 103, Carbon Dioxide Level 29, Calcium Level 8.7L, Aspartate Amino Transf (AST/SGOT) 13, Alanine Aminotransferase (ALT/SGPT) 13, Alkaline Phosphatase 70, Total Bilirubin 0.3, Total Protein 6.8, Albumin 2.8L, Total Protein (PEP) 6.8, Albumin/Globulin Ratio 0.70L CBC/BMP Laboratory Tests 03/01/17 07:40 Red Blood Count 3.73 L, Mean Corpuscular Volume 92.0, Mean Corpuscular Hemoglobin 31.4, Mean Corpuscular Hemoglobin Concent 34.1, Red Cell Distribution Width 13.3, Calcium Level 8.7 L, Aspartate Amino Transf (AST/SGOT) 13, Alanine Aminotransferase (ALT/SGPT) 13, Alkaline Phosphatase 70, Total Bilirubin 0.3, Total Protein 6.8, Albumin 2.8 L Attending Note Attending Note patient s/p left total hip revision. c/o nausea, likely secondary to narcotic analgesics. transient hypoxia noted. incentive spirometry has been ordered (thrice) No cough, no wheeze, no dyspnea. JEANCARLOS CORDOVA PA-C Mar 01, 2017 08:35 Saravanan Hammer MD Mar 01, 2017 15:34
--- NOTE | 2017-03-01 09:41 | REP ---
Clinical: Hypoxemia. Technique: PA and lateral. Comparison: 01/07/2017. Findings: Diffuse chronic interstitial changes are appreciated. Mediastinum and cardiac silhouette are stable. Superimposed lower lobe atelectasis (right greater than left) is appreciated and small pleural reactions based on lateral radiograph cannot be excluded. Skeletal structures demonstrate osteopenia and degenerative changes. Impression: Superimposed moderate bibasilar atelectasis (right greater than left) with possible small pleural effusion. Signed by Reynaldo Mccullough MD 03/01/2017 09:31 A
--- NOTE | 2017-03-01 09:56 | REP ---
LEFT HIP COMPLETE: 03/01/2017. Clinical history: Status post left total hip arthroplasty. Comparison: CT abdomen and pelvis 01/17/2017. Findings: The two-view show a left total hip arthroplasty with the femoral stem component tightly applied to the [place] bone. Cross table lateral shows skin shekhar adjacent to that left hip. The femoral head component articulates normally with the acetabular cup component. I do not see evidence of acute bony finding. There is subcutaneous air from recent surgery in these clips. Impression: 1. Status post left total hip arthroplasty. The two components are well aligned in relationship to the [place] bone and each other. Signed by Beltran Saab MD 03/01/2017 05:38 P
[2017-03-01] MEDS: SENOKOT S TAB PO SCH ×2 (10:05→21:49)
[2017-03-01] MEDS: PARoxetine 20 MG TAB PO SCH (10:05)
[2017-03-01] MEDS: MIRALAX *UNIT DOSE* 17GM PACKET PO SCH (10:06)
[2017-03-01] MEDS: MOM 30ML SUSPENSION UDC PO SCH (10:06)
[2017-03-01] MEDS: PERCOCET 5MG/325MG TAB PO PRN ×2 (10:06→16:09)
[2017-03-01] MEDS: ONDANSETRON 4 MG TAB (S0181) PO PRN (10:43)
[2017-03-01] MEDS ORDERED: WARFARIN SOD 5 MG TAB PO ONE (17:00)
[2017-03-01 22:00] VITALS: BP 139/78
[2017-03-02 05:51] LABS: MEAN CORPUSCULAR HEMOGLOBIN 30.9 pg (27.0-33.0); MEAN CORPUSCULAR HGB CONC 33.7 g/dl (32.0-36.5); MEAN CORPUSCULAR VOLUME 91.6 fl (80.0-96.0); PLATELET COUNT, AUTOMATED 282 10^3/uL (150-450); RED CELL DISTRIBUTION WIDTH 13.2 % (11.5-14.5); WHITE BLOOD COUNT 12.8 10^3/uL (4.0-10.0)
[2017-03-02 06:00] VITALS: BP 136/76
[2017-03-02 06:10] LABS: INR 1.45
[2017-03-02] MEDS: PERCOCET 5MG/325MG TAB PO PRN ×3 (06:33→17:29)
[2017-03-02] MEDS: ALBUTEROL SULFATE 2.5 MG/0.5 ML INH NEB SOLN NEB SCH ×4 (07:16→20:54)
[2017-03-02] MEDS ORDERED: COUM2.5T17 PO (08:55)
[2017-03-02] MEDS ORDERED: PERC5TAB12 PO (08:55)
[2017-03-02] MEDS: MOM 30ML SUSPENSION UDC PO SCH (09:00)
[2017-03-02] MEDS: MIRALAX *UNIT DOSE* 17GM PACKET PO SCH (09:36)
[2017-03-02] MEDS: PARoxetine 20 MG TAB PO SCH (09:36)
[2017-03-02] MEDS: TAMSULOSIN 0.4 MG CAP PO SCH ×2 (09:36→19:41)
[2017-03-02] MEDS: SENOKOT S TAB PO SCH ×2 (09:36→19:41)
[2017-03-02 14:00] VITALS: BP 165/83
[2017-03-02] MEDS ORDERED: WARFARIN SOD 3 MG TAB PO ONE (17:00)
[2017-03-02 22:00] VITALS: BP 134/75
[2017-03-03] MEDS: ONDANSETRON 4 MG TAB (S0181) PO PRN ×2 (00:47→05:53)
[2017-03-03 05:57] LABS: INR 1.5
[2017-03-03 06:00] VITALS: BP 136/76
[2017-03-03] MEDS ORDERED: MAGNESIUM CITRATE 300 ML BTL PO ONE (07:15)
[2017-03-03] MEDS: ALBUTEROL SULFATE 2.5 MG/0.5 ML INH NEB SOLN NEB SCH ×4 (08:00→23:32)
--- NOTE | 2017-03-03 09:47 | IPNPDOC ---
Subjective Date Seen The patient was seen on 03/03/17. Subjective Chief Complaint/HPI The patient is a 66-year-old male admitted with a reason for visit of Complication Left Total Hip Implant. Events since last encounter Patient states he is starting urinate better, and he has not needed to be catheterized in the past 2 days. He states he is slowly working with PT. Constitutional: Denies: Chills, Fever Pulmonary: Denies: Dyspnea, Cough Cardiovascular: Denies: Chest Pain Gastrointestinal: Denies: Nausea, Vomiting, Abdominal Pain Genitourinary: Denies: Dysuria, Incontinence, Retention Objective Physical Examination General Exam: Positive: Alert, No Acute Distress Chest Exam: Positive: Clear to auscultation, Negative: Rales, Rhonchi, Wheezing Heart Exam: Positive: Rate Normal, Regular Rhythm, Murmurs (DAYLIN at apex) Abdomen Exam: Positive: Normal bowel sounds, Soft, Negative: Tenderness Extremity Exam: Negative: Edema Assessment /Plan Problems (1) Hypoxemia Status: Acute Response to Treatment: Improving Problem Text: Patient has been off of O2 with O2 sat >90% on RA. He is symptomatically improved. Previous hypoxemia was likely related to advanced COPD/emphysema - Encourage IS (2) Urinary retention Status: Acute Response to Treatment: Improving Problem Text: Patient reports that he had some urinary retention post-op ( difficulty initiating stream and dribbling) but this has been gradually improving, and he is voiding normally today. - Continue tamsulosin (3) COPD (chronic obstructive pulmonary disease) Status: Chronic Problem Text: Normally does not have dyspnea or chronic cough Not on inhalers normally No wheezing currently (4) Nicotine abuse Status: Chronic Response to Treatment: Stable (5) Mild aortic stenosis Status: Chronic Response to Treatment: Stable (6) HTN (hypertension) Status: Chronic Response to Treatment: Stable Plan/VTE VTE Prophylaxis Ordered?: Yes (Coumadin per ortho) Plan Ortho has written for discharge once cleared by PT and voiding; patient is doing better today in terms of both of these things, but he does not feel ready to go home. At this point, as BP is controlled and dyspnea has resolved, we will sign off but we are happy to assist if needed. VS, I&O, 24H, Fishbone Vital Signs/I&O Vital Signs Date Time Temp Pulse Resp B/P (MAP) Pulse Ox O2 Delivery O2 Flow Rate FiO2 03/03/17 06:00 98.5 75 18 136/76 (96) 93 Room Air 03/01/17 11:40 2.0 Laboratory Data 24H LABS Laboratory Tests 2 03/03/17 05:23: Prothrombin Time 18.5H, Prothromb Time International Ratio 1.50 MARGARET KEBEDE MD Mar 03, 2017 09:47
[2017-03-03] MEDS ORDERED: MAGNESIUM CITRATE 300 ML BTL PO PRN (10:00)
[2017-03-03] MEDS: MIRALAX *UNIT DOSE* 17GM PACKET PO SCH (10:02)
[2017-03-03] MEDS: MOM 30ML SUSPENSION UDC PO SCH (10:02)
[2017-03-03] MEDS: PARoxetine 20 MG TAB PO SCH (10:02)
[2017-03-03] MEDS: TAMSULOSIN 0.4 MG CAP PO SCH ×2 (10:02→20:28)
[2017-03-03] MEDS: SENOKOT S TAB PO SCH ×2 (10:02→20:28)
[2017-03-03] MEDS: PERCOCET 5MG/325MG TAB PO PRN ×2 (10:03→16:46)
[2017-03-03 14:00] VITALS: BP 150/80
[2017-03-03] MEDS ORDERED: WARFARIN SOD 7.5 MG TAB PO ONE (17:00)
[2017-03-03 22:00] VITALS: BP 160/80
[2017-03-04] MEDS: ONDANSETRON 4 MG TAB (S0181) PO PRN ×2 (00:43→10:01)
[2017-03-04 06:00] VITALS: BP 150/82
[2017-03-04] MEDS: ALBUTEROL SULFATE 2.5 MG/0.5 ML INH NEB SOLN NEB SCH (07:15)
[2017-03-04 07:48] LABS: INR 2.01
[2017-03-04] MEDS ORDERED: FLOM5CAP PO (08:25)
[2017-03-04] MEDS: SENOKOT S TAB PO SCH (09:00)
[2017-03-04] MEDS: MOM 30ML SUSPENSION UDC PO SCH (09:00)
[2017-03-04] MEDS: MIRALAX *UNIT DOSE* 17GM PACKET PO SCH (09:00)
[2017-03-04] MEDS: PARoxetine 20 MG TAB PO SCH (10:01)
[2017-03-04] MEDS: TAMSULOSIN 0.4 MG CAP PO SCH (10:02)
[2017-03-04 14:03] LABS: ALBUMIN 3.45 GM/DL (3.29-5.55); ALBUMIN % 50.7 % (55.8-66.1); GAMMA GLOBULIN % 18.3 % (11.1-18.8)
--- NOTE | 2017-03-06 10:44 | DSES ---
DATE OF ADMISSION: 02/28/2017 DATE OF DISCHARGE: 03/04/2017 DISCHARGE DIAGNOSIS: Left total hip arthroplasty difficulty, status post left total hip arthroplasty revision. HISTORY: This is a 66-year-old male who 13 years ago underwent left total hip arthroplasty. In recent months, he had began to experience pain and subluxation in the left hip. He had elected for surgery for his continued symptoms. PROCEDURE PERFORMED: Left total hip arthroplasty. HOSPITAL COURSE: The patient was admitted on the day of surgery and underwent left total hip arthroplasty revision without complications. On the day of discharge, the patient was doing well. He was up with physical therapy per the protocol. He will use adjusted dose Coumadin and thromboembolic deterrent (GLENN) stockings for 30 days postoperatively for deep vein thrombosis (DVT) prophylaxis and he will use oral medications for pain control. Also, the patient will follow up in the office in 2 weeks for staple removal and wound check. He will resume preoperative medications and diet.
== END 2017-03-04 14:55 | disposition home health service (06) | DRG 301 ==
LOC: M OR 11:32 → M MS5PR 16:44 → M ED INP 03-01 13:45 → M MS5PR 03-01 14:00
PROVIDERS: ADMIT Orthopaedic Surgery; ATTEND Orthopaedic Surgery
PROC: 0SR90JA Replacement of Right Hip Joint with Synthetic Substitute, Uncemented, Open Approach (ICD-10-PCS; principal; 2017-02-28 13:00)
DX: T84.061A Wear of articular bearing surface of internal prosthetic left hip joint, initial encounter (principal); I10 Essential (primary) hypertension; Z79.899 Other long term (current) drug therapy; Z88.8 Allergy status to other drugs, medicaments and biological substances; I35.0 Nonrheumatic aortic (valve) stenosis; J43.9 Emphysema, unspecified; F41.9 Anxiety disorder, unspecified; F32.9 Major depressive disorder, single episode, unspecified; F17.210 Nicotine dependence, cigarettes, uncomplicated; R33.9 Retention of urine, unspecified; Y83.1 Surgical operation with implant of artificial internal device as the cause of abnormal reaction of the patient, or of later complication, without mention of misadventure at the time of the procedure

== ENCOUNTER → 2017-03-14 | Outpatient (REF) | payer BC, MEDICARE ==
[~2017-03-14] MED LIST changes: +COUM2.5T17 PO; +FLOM5CAP PO; +PERC5TAB12 PO
[2017-03-14 12:09] LABS: INR 2.43
== END ==
LOC: M LABDRAW1 09:40
PROVIDERS: ATTEND Orthopaedic Surgery
DX: Z51.81 Encounter for therapeutic drug level monitoring (principal); Z79.01 Long term (current) use of anticoagulants

== ENCOUNTER → 2017-04-09 | Outpatient (REF) | payer BC ==
[2017-04-09 13:35] LABS: BASO # 0.1 10^3/uL (0.0-0.2); BASO % 0.5 % (0.0-1.0); EOS # 0.3 10^3/uL (0.0-0.50); EOS % 2.3 % (0.0-3.0); HEMATOCRIT 44.3 % (42.0-52.0); IMMATURE GRANULOCYTE % 0.4 % (0-0); LYMPH # 1.4 10^3/uL (1.5-4.5); LYMPH % 12.8 % (24.0-44.0); MEAN CORPUSCULAR HEMOGLOBIN 29.6 pg (27.0-33.0); MEAN CORPUSCULAR HGB CONC 31.6 g/dl (32.0-36.5); MEAN CORPUSCULAR VOLUME 93.7 fl (80.0-96.0); MONO # 0.8 10^3/uL (0.0-0.8); MONO % 7.1 % (0.0-5.0); NEUTROPHILS # 8.4 10^3/uL (1.8-7.7); NEUTROPHILS % 76.9 % (36.0-66.0); PLATELET COUNT, AUTOMATED 513 10^3/uL (150-450); RED BLOOD COUNT 4.73 10^6/uL (4.30-6.10); RED CELL DISTRIBUTION WIDTH 13.9 % (11.5-14.5); RETIC HEMOGLOBIN EQUIVALENT 33.1 pg (24-36); RETICULOCYTE # 63.4 10^9/L (17-77); RETICULOCYTE % 1.3 % (0.5-1.5); WHITE BLOOD COUNT 10.9 10^3/uL (4.0-10.0)
[2017-04-09 13:40] LABS: APPEARANCE, URINE CLEAR (CLEAR); BACTERIA, URINE AUTO NEGATIVE (NEGATIVE); BILIRUBIN, URINE AUTO NEGATIVE (NEGATIVE); BLOOD, URINE BLOOD NEGATIVE (NEGATIVE); COLOR, URINE YELLOW (YELLOW); GLUCOSE, URINE (UA) AUTO NEGATIVE (NEGATIVE); KETONE, URINE AUTO NEGATIVE (NEGATIVE); LEUKOCYTE ESTERASE, URINE AUTO NEGATIVE (NEGATIVE); NITRITE, URINE AUTO NEGATIVE (NEGATIVE); PROTEIN, URINE AUTO NEGATIVE (NEGATIVE); RBC, URINE AUTO 7 /HPF (0-3); SPECIFIC GRAVITY URINE AUTO 1.015 (1.002-1.035); SQUAMOUS EPITHELIAL CELL UR AU 0 /HPF (0-6); UROBILINOGEN, URINE AUTO 0.2 mg/dL (0.0-2.0); WBC, URINE AUTO 0 /HPF (0-3)
[2017-04-09 13:47] LABS: ALBUMIN 3.9 GM/DL (3.2-5.2); ALBUMIN/GLOBULIN RATIO 0.91 (1.00-1.93); ALKALINE PHOSPHATASE 81 U/L (45-117); ALT/SGPT 17 U/L (12-78); ANION GAP 7 MEQ/L (8-16); AST/SGOT 16 U/L (7-37); BILIRUBIN,TOTAL 0.4 MG/DL (0.2-1.0); BLOOD UREA NITROGEN 18 MG/DL (7-18); C REACTIVE PROTEIN QUANTITATIV 0.62 MG/DL (0.00-0.30); CALCIUM LEVEL 9.2 MG/DL (8.8-10.2); CARBON DIOXIDE LEVEL 30 MEQ/L (21-32); CHLORIDE LEVEL 102 MEQ/L (98-107); CHOLESTEROL LEVEL 198 MG/DL (<200); CPK CREATINE PHOSPHOKINASE 38 U/L (39-308); CREATININE FOR GFR 0.73 MG/DL (0.70-1.30); FERRITIN 158 NG/ML (26-388); GLOMERULAR FILTRATION RATE > 60.0 (>49); GLUCOSE, FASTING 87 MG/DL (80-110); HDL CHOLESTEROL 38 MG/DL (>40); IRON (FE) 108 UG/DL (65-175); LDL CHOLESTEROL 123.4 MG/DL (<100); MAGNESIUM LEVEL 2.5 MG/DL (1.8-2.4); NON-HDL-C 160 MG/DL; PERCENT SATURATION 30.6 % (19.7-50.0); POTASSIUM SERUM 4.3 MEQ/L (3.5-5.1); SODIUM LEVEL 139 MEQ/L (136-145); TOTAL IRON BINDING CAPACITY 353 UG/DL (250-450); TOTAL PROTEIN 8.2 GM/DL (6.4-8.2); TRIGLYCERIDES LEVEL 183 MG/DL (<150)
[2017-04-09 13:50] LABS: ESTIMATED AVERAGE GLUCOSE 108 MG/DL (60-110); HEMOGLOBIN A1c 5.4 %; VITAMIN B12 LEVEL 1311 PG/ML (247-911)
[2017-04-09 14:23] LABS: CREATININE, URINE 97.5 MG/DL; MALB URINE SIEMENS 9.8 MG/L
[2017-04-10 14:13] LABS: INSULIN LEVEL 9.4 uIU/mL (2.6-24.9)
== END ==
LOC: M SFHCPLAZ 09:11
DX: R73.01 Impaired fasting glucose (principal); E78.2 Mixed hyperlipidemia; I10 Essential (primary) hypertension
CPT/HCPCS: 82550

== ENCOUNTER → 2017-06-28 | Outpatient (REF) | payer BC ==
[2017-06-28 16:06] LABS: BASO # 0.1 10^3/uL (0.0-0.2); BASO % 0.5 % (0.0-1.0); EOS # 0.2 10^3/uL (0.0-0.50); EOS % 1.7 % (0.0-3.0); HEMATOCRIT 45.1 % (42.0-52.0); HEMOGLOBIN 14.7 g/dl (13.5-17.5); IMMATURE GRANULOCYTE % 0.5 % (0-3.0); LYMPH # 1.6 10^3/uL (1.5-4.5); MEAN CORPUSCULAR HEMOGLOBIN 29.5 pg (27.0-33.0); MEAN CORPUSCULAR HGB CONC 32.6 g/dl (32.0-36.5); MEAN CORPUSCULAR VOLUME 90.6 fl (80.0-96.0); MONO # 0.9 10^3/uL (0.0-0.8); MONO % 8.9 % (0.0-5.0); NEUTROPHILS # 7.7 10^3/uL (1.8-7.7); NEUTROPHILS % 73.4 % (36.0-66.0); PLATELET COUNT, AUTOMATED 368 10^3/uL (150-450); RED BLOOD COUNT 4.98 10^6/uL (4.30-6.10); RED CELL DISTRIBUTION WIDTH 14.3 % (11.5-14.5); WHITE BLOOD COUNT 10.5 10^3/uL (4.0-10.0)
[2017-06-28 16:16] LABS: INR 0.94; PROTHROMBIN TIME 12.7 SECONDS (12.4-14.5)
[2017-06-28 16:39] LABS: PTH INTACT 38.1 PG/ML (18.5-88.0); TOTAL 25(OH) VITAMIN D 31.2 NG/ML (30.0-100.0)
[2017-06-28 16:45] LABS: ALBUMIN 4.1 GM/DL (3.2-5.2); ALKALINE PHOSPHATASE 83 U/L (45-117); ALT/SGPT 15 U/L (12-78); ANION GAP 6 MEQ/L (8-16); AST/SGOT 14 U/L (7-37); BILIRUBIN,TOTAL 0.4 MG/DL (0.2-1.0); BLOOD UREA NITROGEN 24 MG/DL (7-18); CARBON DIOXIDE LEVEL 27 MEQ/L (21-32); CHLORIDE LEVEL 106 MEQ/L (98-107); CREATININE FOR GFR 0.79 MG/DL (0.70-1.30); GLOMERULAR FILTRATION RATE > 60.0 (>49); GLUCOSE, FASTING 82 MG/DL (70-100); POTASSIUM SERUM 4.5 MEQ/L (3.5-5.1); PSA SCREENING 8.78 NG/ML (< 4.0); SODIUM LEVEL 139 MEQ/L (136-145); TOTAL PROTEIN 8.2 GM/DL (6.4-8.2)
== END ==
LOC: M SFHCPLAZ 12:48
DX: R97.20 Elevated prostate specific antigen [PSA] (principal); I10 Essential (primary) hypertension
CPT/HCPCS: 80053

== ENCOUNTER → 2017-11-14 | Outpatient (REF) | payer MEDICARE, BC ==
[2017-11-14 16:47] LABS: ALBUMIN 3.7 GM/DL (3.2-5.2); ALKALINE PHOSPHATASE 79 U/L (45-117); ALT/SGPT 21 U/L (12-78); ANION GAP 7 MEQ/L (8-16); AST/SGOT 13 U/L (7-37); BILIRUBIN,TOTAL 0.4 MG/DL (0.2-1.0); BLOOD UREA NITROGEN 25 MG/DL (7-18); C REACTIVE PROTEIN QUANTITATIV < 0.30 MG/DL (0.00-0.30); CALCIUM LEVEL 9.1 MG/DL (8.8-10.2); CARBON DIOXIDE LEVEL 29 MEQ/L (21-32); CHLORIDE LEVEL 106 MEQ/L (98-107); CHOLESTEROL LEVEL 110 MG/DL (<200); CHOLESTEROL RISK RATIO 3.235 (<5); CPK CREATINE PHOSPHOKINASE 50 U/L (39-308); CREATININE FOR GFR 0.88 MG/DL (0.70-1.30); GLOMERULAR FILTRATION RATE > 60.0 (>49); GLUCOSE, FASTING 83 MG/DL (70-100); HDL CHOLESTEROL 34 MG/DL (>40); LDL CHOLESTEROL 48.2 MG/DL (<100); NON-HDL-C 76 MG/DL; POTASSIUM SERUM 4.7 MEQ/L (3.5-5.1); SODIUM LEVEL 142 MEQ/L (136-145); TOTAL PROTEIN 7.4 GM/DL (6.4-8.2); TRIGLYCERIDES LEVEL 139 MG/DL (<150)
[2017-11-14 17:00] LABS: ESTIMATED AVERAGE GLUCOSE 108 MG/DL (60-110); HEMOGLOBIN A1c 5.4 %
== END ==
LOC: M LAB REF 16:07
DX: E78.2 Mixed hyperlipidemia (principal); R73.01 Impaired fasting glucose
CPT/HCPCS: 82550

== ENCOUNTER → 2017-11-15 | Outpatient (CLI) | payer MEDICARE | LOC: M RAD 08:41 | DX: Z12.2 Encounter for screening for malignant neoplasm of respiratory organs (principal); Z87.891 Personal history of nicotine dependence; J84.10 Pulmonary fibrosis, unspecified | CPT/HCPCS: G0297 ==

== ENCOUNTER 2018-01-23 09:11 | Day surgery (SDC) | payer MEDICARE ==
[~2018-01-23 09:11] MED LIST changes: -ALEV220T26 PO; -CALC0.009 TOP; -COUM2.5T17 PO; -FISH1000 PO; -FLOM5CAP PO; +LIDOCAINE 2% INJ 100 MG/5 ML SDV (FOR ANES.) As Ordered; -NORCOTAB PO; -PARO20TA3 PO; -PERC5TAB12 PO; +PROPOFOL 200 MG/20 ML VIAL As Ordered
[2018-01-23] MEDS: NS 1,000 ML IV (10:30)
== END 2018-01-23 11:17 | disposition home or self-care (01) ==
LOC: M OPP 09:11
DX: Z12.11 Encounter for screening for malignant neoplasm of colon (principal); K64.2 Third degree hemorrhoids; K64.1 Second degree hemorrhoids; K57.30 Diverticulosis of large intestine without perforation or abscess without bleeding; I71.4 Abdominal aortic aneurysm, without rupture; I10 Essential (primary) hypertension; E78.5 Hyperlipidemia, unspecified; M19.90 Unspecified osteoarthritis, unspecified site; L40.9 Psoriasis, unspecified; F32.9 Major depressive disorder, single episode, unspecified; F41.9 Anxiety disorder, unspecified; N40.1 Benign prostatic hyperplasia with lower urinary tract symptoms; Z96.643 Presence of artificial hip joint, bilateral; Z88.8 Allergy status to other drugs, medicaments and biological substances; Z79.82 Long term (current) use of aspirin; Z79.899 Other long term (current) drug therapy
CPT/HCPCS: G0121

== ENCOUNTER → 2018-03-21 | Outpatient (REF) | payer MEDICARE ==
[2018-03-21 13:17] LABS: BASO % 0.5 % (0.0-1.0); EOS # 0.1 10^3/uL (0.0-0.50); EOS % 1.4 % (0.0-3.0); HEMATOCRIT 44.4 % (42.0-52.0); HEMOGLOBIN 14.4 g/dl (13.5-17.5); IMMATURE GRANULOCYTE % 0.5 % (0-3.0); LYMPH # 1.3 10^3/uL (1.5-4.5); LYMPH % 14.7 % (24.0-44.0); MEAN CORPUSCULAR HEMOGLOBIN 30.8 pg (27.0-33.0); MEAN CORPUSCULAR HGB CONC 32.4 g/dl (32.0-36.5); MEAN CORPUSCULAR VOLUME 94.9 fl (80.0-96.0); MONO % 11.4 % (0.0-5.0); NEUTROPHILS # 6.3 10^3/uL (1.8-7.7); NEUTROPHILS % 71.5 % (36.0-66.0); PLATELET COUNT, AUTOMATED 362 10^3/uL (150-450); RED BLOOD COUNT 4.68 10^6/uL (4.30-6.10); RED CELL DISTRIBUTION WIDTH 13.2 % (11.5-14.5); WHITE BLOOD COUNT 8.8 10^3/uL (4.0-10.0)
[2018-03-21 13:44] LABS: ALBUMIN/GLOBULIN RATIO 1.11 (1.00-1.93); ALKALINE PHOSPHATASE 81 U/L (45-117); ALT/SGPT 21 U/L (12-78); ANION GAP 7 MEQ/L (8-16); AST/SGOT 14 U/L (7-37); BILIRUBIN,TOTAL 0.2 MG/DL (0.2-1.0); BLOOD UREA NITROGEN 27 MG/DL (7-18); CALCIUM LEVEL 9.3 MG/DL (8.8-10.2); CARBON DIOXIDE LEVEL 30 MEQ/L (21-32); CHLORIDE LEVEL 104 MEQ/L (98-107); CREATININE FOR GFR 0.85 MG/DL (0.70-1.30); GLOMERULAR FILTRATION RATE > 60.0 (>49); GLUCOSE, FASTING 75 MG/DL (70-100); MAGNESIUM LEVEL 2.1 MG/DL (1.8-2.4); POTASSIUM SERUM 4.6 MEQ/L (3.5-5.1); PROSTATIC SPECIFIC AG MONITOR 9.24 NG/ML (< 4.00); SODIUM LEVEL 141 MEQ/L (136-145); TOTAL PROTEIN 7.6 GM/DL (6.4-8.2)
== END ==
LOC: M SFHCPLAZ 11:31
DX: I10 Essential (primary) hypertension (principal); R73.01 Impaired fasting glucose; R97.20 Elevated prostate specific antigen [PSA]
CPT/HCPCS: 83525

== ENCOUNTER → 2018-04-02 | Outpatient (CLI) | payer MEDICARE ==
[~2018-04-02] MED LIST changes: +ALEV220T26 PO; +ASPI1TAB PO; +CALC0.009 TOP; +COUM2.5T17 PO; +CRES10TA32 PO; +FISH1000 PO; +FISH306C PO; +FLOM0.4C39 PO; +IRBE150T12 PO; -LIDOCAINE 2% INJ 100 MG/5 ML SDV (FOR ANES.) As Ordered; +NORCOTAB PO; +PARO20TA3 PO; +PERC5TAB12 PO; -PROPOFOL 200 MG/20 ML VIAL As Ordered
--- NOTE | 2018-04-02 11:58 | REP ---
ABDOMINAL AORTIC SONOGRAPHY: HISTORY: Abdominal aortic aneurysm without rupture. Post aortobi-iliac stent graft repair. COMPARISON: Sonography, February 25, 2017. Comparison pre-stent graft CT study, January 17, 2017. SONOGRAPHIC FINDINGS: Aortobi-iliac stent graft is seen within the known abdominal aortic aneurysm, as before. The aneurysmal segment measures 6.6 cm in greatest anteroposterior dimension x 6.4 cm transverse x 9.2 cm in length. No increase in aneurysm size seen. There is no other evidence of leak. The AP dimensions of the right and left common iliac arteries are 3.5 and 3.1 cm, respectively. Incidental note is made of new, moderate right-sided hydronephrosis. This was not apparent on January 17, 2017 or on the poststent placement February 25, 2017 ultrasound. IMPRESSION: Stable aortobi-iliac aneurysm status post aortobi-iliac stent graft placement. Incidental moderate degree of new right-sided hydronephrosis, etiology uncertain. Electronically Signed by Gilbert Ronquillo MD 04/02/2018 06:46 P
== END ==
LOC: M RAD 09:32
PROVIDERS: ATTEND Family Medicine
DX: I71.4 Abdominal aortic aneurysm, without rupture (principal)

== ENCOUNTER → 2018-04-15 | Outpatient (CLI) | payer MEDICARE ==
[~2018-04-15] MED LIST changes: +ISOVUE-370 76% 100ML VIAL (Q9967) As Ordered ONE
--- NOTE | 2018-04-15 15:15 | REP ---
CT UROGRAPHY: HISTORY: Hydronephrosis. CT CONTRAST DOSE: 100 mL of intravenous Isovue 370. Comparison CT study January 17, 2017. FINDINGS: In the interval since the last exam, the patient has undergone aortobi-iliac stent graft repair for abdominal aortic aneurysm. Bilateral hip arthroplasties are noted. The bowel gas pattern is normal on mobile practice lead image. The lung bases show minimal linear fibrotic changes on axial CT images but are otherwise clear. The liver and the spleen are normal in size homogeneous in texture. No pancreatic mass lesion is observed. The gallbladder is unremarkable. There is diverticulosis affecting the right and left colon without CT evidence of diverticulitis. There are bilateral renal cysts again noted. There is moderate right-sided hydronephrosis and hydroureter. This is a new finding when compared with the prior CT study. Hydronephrosis was observed on the right on April 02, 2018 prior ultrasound. On today's CT, dilated right ureter can be traced to the level of the vascular crossing with the right iliac stent aneurysm repair. No ureteral stone or mass lesion is seen. At the level of the vascular ureteral crossing, the aneurysmal, repaired segment of the common iliac artery measures 4.1 cm in greatest AP dimension. At this level on the January 17, 2017 study, the common iliac artery aneurysmal segment measured 3.4 cm. The infrarenal abdominal aortic aneurysm measures 6.1 cm in AP dimension on today's CT. Previous dimension at this same level was 6.9 cm. No left-sided hydronephrosis is noted. Contrast enhanced portion of the study shows no evidence of Endoleak. No hematoma or extravasation is appreciated. [place] artifact is seen in the pelvis from the hip prosthesis sees. No other abnormality. IMPRESSION: Moderate new right-sided hydronephrosis with hydroureter traced to the level of the ureteral vascular crossing with the aneurysmal right common iliac artery as above. This segment of the right common iliac artery is slightly more dilated than it was on the January 17 prior study although the stent graft is in place and there is no evidence of stent graft Endoleak or surrounding hematoma. Left colonic diverticulosis is seen. Multiple renal cysts are noted. Electronically Signed by Gilbert Ronquillo MD 04/15/2018 06:09 P
== END ==
LOC: M RAD 08:25
PROVIDERS: ATTEND Nurse Practitioner Family
DX: N13.30 Unspecified hydronephrosis (principal); N28.1 Cyst of kidney, acquired; Z96.643 Presence of artificial hip joint, bilateral; K57.30 Diverticulosis of large intestine without perforation or abscess without bleeding
CPT/HCPCS: 74178; Q9967

== ENCOUNTER → 2018-05-12 | Outpatient (CLI) | payer MEDICARE ==
[~2018-05-12] MED LIST changes: -ISOVUE-370 76% 100ML VIAL (Q9967) As Ordered ONE
--- NOTE | 2018-05-12 11:11 | REP ---
Chest two views HISTORY: Hydronephrosis Comparison: 03/01/2017 A diffuse increase in interstitial markings is present in the lungs consistent with chronic interstitial fibrosis. The heart is normal in size. The pulmonary vasculature is normal in appearance. The bony structure is intact. IMPRESSION: Chronic interstitial fibrosis. Electronically Signed by Terrance Cobos MD 05/12/2018 11:02 A
[2018-05-12 13:47] LABS: HEMATOCRIT 47.1 % (42.0-52.0); HEMOGLOBIN 15.2 g/dl (13.5-17.5); MEAN CORPUSCULAR HEMOGLOBIN 30.8 pg (27.0-33.0); MEAN CORPUSCULAR HGB CONC 32.3 g/dl (32.0-36.5); MEAN CORPUSCULAR VOLUME 95.5 fl (80.0-96.0); PLATELET COUNT, AUTOMATED 381 10^3/uL (150-450); RED BLOOD COUNT 4.93 10^6/uL (4.30-6.10); WHITE BLOOD COUNT 8.4 10^3/uL (4.0-10.0)
[2018-05-12 13:52] LABS: BLOOD UREA NITROGEN 21 MG/DL (7-18); CALCIUM LEVEL 9.1 MG/DL (8.8-10.2); CARBON DIOXIDE LEVEL 31 MEQ/L (21-32); CHLORIDE LEVEL 103 MEQ/L (98-107); CREATININE FOR GFR 1.06 MG/DL (0.70-1.30); GLOMERULAR FILTRATION RATE > 60.0 (>49); GLUCOSE, FASTING 101 MG/DL (70-100); POTASSIUM SERUM 4.2 MEQ/L (3.5-5.1); SODIUM LEVEL 139 MEQ/L (136-145)
[2018-05-12 14:00] LABS: INR 0.96; PROTHROMBIN TIME 12.9 SECONDS (12.1-14.4)
[2018-05-12 14:01] LABS: PARTIAL THROMBOPLASTIN TIME 35.2 SECONDS (25.4-37.6)
== END ==
LOC: M SMT 09:45
PROVIDERS: ATTEND Nurse Practitioner Family
DX: Z01.818 Encounter for other preprocedural examination (principal); N13.30 Unspecified hydronephrosis; J84.10 Pulmonary fibrosis, unspecified

== ENCOUNTER → 2018-05-30 | Outpatient (CLI) | payer MEDICARE ==
[~2018-05-30] MED LIST changes: +FISH7.5C PO; +PROHANCE 279.3MG/ML 15ML VIAL (A9576) As Ordered ONE; +PROHANCE 279.3MG/ML 5ML VIAL (A9576) As Ordered ONE; +TACLOIN4 EX
--- NOTE | 2018-05-30 17:14 | REP ---
Multiparametric prostate MRI without and with IV gadolinium: History: Elevated PSA. Comparisons: Comparison CT study is from April 15, 2018. TECHNIQUE: Using a phased array surface coil, small field of view imaging was acquired using T2-weighted scans in the axial, coronal, and sagittal imaging planes. Small field of view diffusion-weighted sequences are acquired. Small field of view axial T1-weighted scans are acquired dynamically after the intravenous administration of 16 mL of ProHance. Prostate MRI findings: There is some magnetic field susceptibility artifact emanating from the prosthetic hip replacements bilaterally. The patient is also status post aortobi-iliac stent graft placement for aneurysm. This produces some artifact as well. There is no evidence of pelvic adenopathy or soft tissue mass. There is left colonic diverticulosis. The visualized bony pelvis shows normal cortical and medullary bone signal intensity. There is no evidence of skeletal metastatic disease. Prostate dimensions are 6.2 x 4.7 x 5.0 cm for a calculated glandular volume of 65.38 mL. There are three focal abnormalities or lesions in the prostate identified and saved for transmission to [facility] for consideration of ultrasound/MR fusion directed biopsy. Lesion #1 is in the right mid posterior transition zone with a volume calculated at 0.62 mL, 1.1 x 0.8 x 1.4 cm. This is a discrete homogeneous low signal intensity focus confined to the prostate with no observable reduction in ADC and a type 1 enhancement curve. Clinically significant cancer is equivocal. Lesion #2 is in the left mid anterior transition zone with a calculated volume of 0.31 mL and dimensions of 0.9 x 0.6 x 1.0 cm. It is discrete homogeneous low signal intensity focus within the prostate. There is no evidence of restricted diffusion. Type 1 enhancement curve is seen. Clinically significant cancer is equivocal. Lesion #3 is in the right mid anterior peripheral zone with a calculated volume of 0.52 ml. Its dimensions are 1.7 x 0.4 x 1.0 cm. It is a discrete low signal intensity focus with no reduction in ADC and a type 2 enhancement curve. Clinically significant cancer is equivocal. Impression: Multiparametric prostate MRI study as above. Three targets are identified and transmitted for consideration of fusion directed biopsy. Electronically Signed by Gilbert Ronquillo MD 06/02/2018 07:57 A
== END ==
LOC: M RAD 12:58
PROVIDERS: ATTEND Nurse Practitioner Family
DX: R93.89 Abnormal findings on diagnostic imaging of other specified body structures (principal)
CPT/HCPCS: 72197; A9576

== ENCOUNTER → 2018-06-02 | Outpatient (REF) | payer MEDICARE ==
[~2018-06-02] MED LIST changes: -PROHANCE 279.3MG/ML 15ML VIAL (A9576) As Ordered ONE; -PROHANCE 279.3MG/ML 5ML VIAL (A9576) As Ordered ONE
[2018-06-02 12:23] LABS: APPEARANCE, URINE CLEAR (CLEAR); BACTERIA, URINE AUTO NEGATIVE (NEGATIVE); BILIRUBIN, URINE AUTO NEGATIVE (NEGATIVE); BLOOD, URINE BLOOD NEGATIVE (NEGATIVE); COLOR, URINE YELLOW (YELLOW); GLUCOSE, URINE (UA) AUTO NEGATIVE (NEGATIVE); KETONE, URINE AUTO NEGATIVE (NEGATIVE); LEUKOCYTE ESTERASE, URINE AUTO NEGATIVE (NEGATIVE); MUCUS, URINE SMALL (NEGATIVE); NITRITE, URINE AUTO NEGATIVE (NEGATIVE); PROTEIN, URINE AUTO NEGATIVE (NEGATIVE); RBC, URINE AUTO 3 /HPF (0-3); SPECIFIC GRAVITY URINE AUTO 1.015 (1.002-1.035); SQUAMOUS EPITHELIAL CELL UR AU 0 /HPF (0-6); UROBILINOGEN, URINE AUTO 0.2 mg/dL (0.0-2.0); WBC, URINE AUTO 1 /HPF (0-3)
== END ==
LOC: M SMT 12:00
PROVIDERS: ATTEND Nurse Practitioner Family
DX: Z01.818 Encounter for other preprocedural examination (principal); N13.30 Unspecified hydronephrosis

== ENCOUNTER 2018-06-11 09:56 | Day surgery (SDC) | payer MEDICARE ==
[~2018-06-11] VITALS: Ht 182.9 cm; Wt 80.7 kg
[~2018-06-11 09:56] MED LIST changes: +CONRAY-60 60% 50ML VIAL (Q9961) As Ordered ONE
[2018-06-11] MEDS ORDERED: LIDOCAINE 2% INJ 100 MG/5 ML SDV (FOR ANES.) As Ordered ONE (13:13)
[2018-06-11] MEDS ORDERED: PROPOFOL 200 MG/20 ML VIAL As Ordered ONE (13:13)
[2018-06-11] MEDS ORDERED: dexameTHASONE 4 MG/ML 1ML VIAL (J1100) As Ordered ONE (13:13)
[2018-06-11] MEDS ORDERED: MIDAZOLAM INJ 2 MG/2 ML VIAL (J2250) As Ordered ONE (13:13)
[2018-06-11] MEDS ORDERED: ONDANSETRON 4MG/2ML VIAL (J2405) As Ordered ONE (13:13)
[2018-06-11] MEDS ORDERED: fentaNYL 100 MCG/2 ML INJECTION (J3010) As Ordered ONE (13:13)
[2018-06-11] MEDS ORDERED: ePHEDrine SULFATE 25 MG/5 ML(5MG/ML) SYRINGE As Ordered ONE (13:21)
--- NOTE | 2018-06-11 14:04 | REP ---
RETROGRADE PYELOGRAM: 06/11/2018 CLINICAL HISTORY: Hydronephrosis. FINDINGS: Seven images from C-arm fluoroscopy provided to Dr. 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 Initial images show wire extending to the renal pelvis with contrast injected in a retrograde fashion with hydronephrosis and hydroureter demonstrated to the level of the iliac vessels. Markers for bi-iliac stents noted. Final image shows a double pigtail stent coiled proximally in the extrarenal pelvis and distally in the right side of the bladder. Fluoroscopy time: 18 seconds. Electronically Signed by Beltran Saab MD 06/11/2018 09:54 P
[2018-06-11] MEDS ORDERED: LR 1,000 ML IV SCH (14:15)
[2018-06-11] MEDS ORDERED: PERCOCET 5MG/325MG TAB PO PRN (14:15)
[2018-06-11] MEDS ORDERED: ACETAMINOPHEN TAB 650MG DOSE (2X325MG) PO PRN (14:15)
[2018-06-11] MEDS ORDERED: fentaNYL 100 MCG/2 ML INJECTION (J3010) IV PRN (14:15)
[2018-06-11 14:35] VITALS: BP 157/72
--- NOTE | 2018-06-12 08:23 | RO ---
DATE OF PROCEDURE: 06/11/2018 PREPROCEDURE DIAGNOSIS: Right hydronephrosis. POSTPROCEDURE DIAGNOSIS: Right ureteral obstruction. PROCEDURE: Cystoscopy, right ureteroscopy, right retrograde pyelogram with intraoperative interpretation of images, right ureteral stent placement. SURGEON: Dr. Kirby Ramirez SUPERVISOR EDUCATION: None. ANESTHESIA: General. OPERATIVE INDICATIONS: This is a 67-year-old male who was recently found to have moderate to severe right sided hydroureteronephrosis down to the level of the iliac crossing. This has raised concern that this is related to his previous vascular surgery and potentially retroperitoneal fibrosis. He was brought to the operating room today for the above listed procedure. DESCRIPTION OF PROCEDURE: The patient was brought to the operating room where general anesthesia was induced. Prophylactic antibiotics were infused. He was then placed in dorsal lithotomy position and prepped and draped in the usual sterile fashion. A rigid cystoscope was inserted into the urethral meatus and advanced to the bladder. A guidewire was then advanced up the right collecting system. I then advanced the ureteral access sheath up into the distal right ureter and then went up with a flexible ureteroscope. A retrograde pyelogram was performed and was notable for a narrowing in the mid to distal ureter at about the level of the crossing of the iliac vessels. Above that level, there was moderate to severe right hydroureteronephrosis. I then went up with the ureteroscope to examine the entire length of the ureter and I confirmed that there was narrowing at the level of the iliac crossing. Of note, there were no masses inside the ureter. There was no scar tissue inside the ureter. The narrowing appeared to be due to extrinsic forces. I then examined the more proximal ureter as well as the kidney and no masses or other abnormalities were seen. The only notable abnormality was that the kidney was severely dilated. At this point, I withdrew the ureteroscope along with the access sheath and because there was no stricture of the ureter due to intrinsic abnormalities and there were no tumors I did not perform a balloon dilation and I did not do any biopsies. Once the ureteroscope and access sheath were removed, I utilized the wire to advance a 6 Mongolian x 22-32 cm JJ ureteral stent up into the right collecting system. The wire was then removed and there were adequate curls of the stent in the right renal pelvis and in the bladder. The bladder was then emptied of all fluid and this marked the conclusion of the procedure. The patient was then taken out of the dorsal lithotomy position, awakened from anesthesia and transported to the recovery room in stable condition. Estimated blood loss: 5 mL. Complications: None. Specimen: None. Plan: Will have the patient follow up in the clinic in a few weeks for likely stent removal. I will also get some labs and assess his kidney function to see if there is improvement with the stent in place.
== END 2018-06-11 15:30 | disposition home or self-care (01) ==
LOC: M SDC 09:56
PROVIDERS: ATTEND Urology
DX: N20.1 Calculus of ureter (principal); N20.0 Calculus of kidney; I10 Essential (primary) hypertension; E78.5 Hyperlipidemia, unspecified; F41.9 Anxiety disorder, unspecified; L40.8 Other psoriasis; N40.0 Benign prostatic hyperplasia without lower urinary tract symptoms; Z79.82 Long term (current) use of aspirin; Z79.899 Other long term (current) drug therapy
CPT/HCPCS: 52332; 74420; C1769; C1894; C2617; J0690; J1100; J2250; J2405; J3010; Q9961

== ENCOUNTER → 2018-06-30 | Outpatient (CLI) | payer MEDICARE ==
[~2018-06-30] MED LIST changes: -CONRAY-60 60% 50ML VIAL (Q9961) As Ordered ONE; +HYDR-3715 PO; -NORCOTAB PO
[2018-06-30 13:59] LABS: BLOOD UREA NITROGEN 25 MG/DL (7-18); CALCIUM LEVEL 9.1 MG/DL (8.8-10.2); CARBON DIOXIDE LEVEL 28 MEQ/L (21-32); CHLORIDE LEVEL 107 MEQ/L (98-107); CREATININE FOR GFR 0.99 MG/DL (0.70-1.30); GLOMERULAR FILTRATION RATE > 60.0 (>49); GLUCOSE, FASTING 95 MG/DL (70-100); POTASSIUM SERUM 4.1 MEQ/L (3.5-5.1); SODIUM LEVEL 142 MEQ/L (136-145)
== END ==
LOC: M SMT 09:38
PROVIDERS: ATTEND Urology
DX: N13.30 Unspecified hydronephrosis (principal)

== ENCOUNTER → 2018-08-19 | Outpatient (CLI) | payer MEDICARE ==
[~2018-08-19] MED LIST changes: -ASPI1TAB PO; +ASPI81TA26 PO; +CRES10TA PO; -CRES10TA32 PO
--- NOTE | 2018-08-19 14:43 | REP ---
TRANSRECTAL ULTRASOUND PROSTATE WITH ULTRASOUND GUIDANCE FOR PROSTATE BIOPSY: Real-time sonographic evaluation of the prostate performed utilizing transrectal probe. The size of the gland is 4.5 x 5.4 x 4.3 cm for a total volume of 54.2 mL. Ultrasound guidance was provided for MR ultrasound fusion-guided biopsy of the prostate, performed by Dr. Ramirez. Electronically Signed by Baljeet Hendricks MD 08/20/2018 09:25 A
== END ==
LOC: M SMT PRO 08:02
PROVIDERS: ATTEND Urology
DX: R97.20 Elevated prostate specific antigen [PSA] (principal)
CPT/HCPCS: 55700; 76942; G0416

== ENCOUNTER → 2018-10-23 | Outpatient (CLI) | payer MEDICARE ==
--- NOTE | 2018-10-23 11:11 | REP ---
Low-dose lung screening CT of the chest: There are no comparison CT studies. There is a comparison PA and lateral plain film study dated 05/12/2018. There are a few small calcified granulomas in the left lung. There are no nodules or masses otherwise. There is dependent atelectasis in the right base. There are no infiltrates or pleural effusions. Impression: Category II low-dose lung screening CT. The probability of malignancy is less than 1%. Depending on risk factors consider annual follow-up low-dose lung screening CT. Electronically Signed by Baljeet Monroe MD 10/23/2018 11:03 A
--- NOTE | 2018-10-23 23:29 | ECGEPIP ---
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 No significant change compared with 01/23/2017. Electronically Signed on 10-23-2018 23:29:07 EDT by Leonel Toledo
== END ==
LOC: M RAD 09:22
PROVIDERS: ATTEND Family Medicine
DX: Z12.2 Encounter for screening for malignant neoplasm of respiratory organs (principal); F17.220 Nicotine dependence, chewing tobacco, uncomplicated; I10 Essential (primary) hypertension; R00.1 Bradycardia, unspecified
CPT/HCPCS: 93005; G0297

== ENCOUNTER → 2018-11-05 | Outpatient (REF) | payer MEDICARE ==
[2018-11-05 13:35] LABS: BASO % 0.3 % (0.0-1.0); EOS # 0.1 10^3/uL (0.0-0.50); EOS % 1.4 % (0.0-3.0); HEMATOCRIT 44.8 % (42.0-52.0); HEMOGLOBIN 14.4 g/dl (13.5-17.5); LYMPH # 1.3 10^3/uL (1.5-4.5); LYMPH % 14.5 % (24.0-44.0); MEAN CORPUSCULAR HEMOGLOBIN 30.8 pg (27.0-33.0); MEAN CORPUSCULAR HGB CONC 32.1 g/dl (32.0-36.5); MEAN CORPUSCULAR VOLUME 95.7 fl (80.0-96.0); MONO # 0.8 10^3/uL (0.0-0.8); MONO % 8.9 % (0.0-5.0); NEUTROPHILS # 6.5 10^3/uL (1.8-7.7); NEUTROPHILS % 74.7 % (36.0-66.0); PLATELET COUNT, AUTOMATED 339 10^3/uL (150-450); RED BLOOD COUNT 4.68 10^6/uL (4.30-6.10); WHITE BLOOD COUNT 8.7 10^3/uL (4.0-10.0)
[2018-11-05 13:36] LABS: ALBUMIN 3.6 GM/DL (3.2-5.2); ALT/SGPT 21 U/L (12-78); BILIRUBIN,TOTAL 0.3 MG/DL (0.2-1.0); BLOOD UREA NITROGEN 19 MG/DL (7-18); CALCIUM LEVEL 9.2 MG/DL (8.8-10.2); CARBON DIOXIDE LEVEL 29 MEQ/L (21-32); CHLORIDE LEVEL 108 MEQ/L (98-107); CHOLESTEROL LEVEL 122 MG/DL (<200); CHOLESTEROL RISK RATIO 3.588 (<5); CREATININE FOR GFR 0.91 MG/DL (0.70-1.30); GLOMERULAR FILTRATION RATE > 60.0 (>42); GLUCOSE, FASTING 85 MG/DL (70-100); HDL CHOLESTEROL 34 MG/DL (>40); LDL CHOLESTEROL 53 MG/DL (<100); MAGNESIUM LEVEL 2.4 MG/DL (1.8-2.4); NON-HDL-C 88 MG/DL; POTASSIUM SERUM 4.1 MEQ/L (3.5-5.1); SODIUM LEVEL 143 MEQ/L (136-145); TOTAL PROTEIN 7.3 GM/DL (6.4-8.2); TRIGLYCERIDES LEVEL 173 MG/DL (<150)
[2018-11-05 13:40] LABS: VITAMIN B12 LEVEL 647 PG/ML (247-911)
[2018-11-05 14:17] LABS: HEMOGLOBIN A1c 5.9 %
[2018-11-06 12:53] LABS: ALBUMIN % 53.4 % (55.8-66.1); ALPHA-1-GLOBULIN % 5.4 % (2.9-4.9); ALPHA-1-GLOBULINS 0.39 GM/DL (0.17-0.41); ALPHA-2-GLOBULINS 0.83 GM/DL (0.42-0.99); ALPHA-2-GLOBULINS % 11.4 % (7.1-11.8); BETA-1-GLOBULINS 0.45 GM/DL (0.28-0.60); BETA-1-GLOBULINS % 6.2 % (4.7-7.2); BETA-2-GLOBULINS 0.39 GM/DL (0.19-0.55); BETA-2-GLOBULINS % 5.3 % (3.2-6.5); GAMMA GLOBULIN % 18.3 % (11.1-18.8); GAMMA GLOBULINS 1.34 GM/DL (0.65-1.58)
== END ==
LOC: M SFHCADAM 08:20
PROVIDERS: ATTEND Family Medicine
DX: D72.829 Elevated white blood cell count, unspecified (principal); E78.2 Mixed hyperlipidemia; R73.01 Impaired fasting glucose

== ENCOUNTER → 2018-11-06 | Outpatient (REF) | payer MEDICARE ==
[2018-11-06 11:30] LABS: INR 1.01
[2018-11-06 11:31] LABS: PARTIAL THROMBOPLASTIN TIME 35.9 SECONDS (25.0-38.4)
== END ==
LOC: M LABDRWAD 10:33
PROVIDERS: ATTEND Family Medicine
DX: I10 Essential (primary) hypertension (principal); Z79.01 Long term (current) use of anticoagulants

== ENCOUNTER → 2019-03-24 | Outpatient (REF) | payer MEDICARE | LOC: M LABDRWAD 13:26 | PROVIDERS: ATTEND Urology | DX: C61 Malignant neoplasm of prostate (principal); D72.829 Elevated white blood cell count, unspecified; E78.2 Mixed hyperlipidemia; R73.01 Impaired fasting glucose ==

== ENCOUNTER → 2019-03-24 | Outpatient (REF) | payer MEDICARE ==
[2019-03-24 14:16] LABS: BASO # 0.1 10^3/uL (0.0-0.2); BASO % 0.6 % (0.0-1.0); EOS # 0.1 10^3/uL (0.0-0.5); EOS % 1.4 % (0.0-3.0); HEMATOCRIT 43.5 % (42.0-52.0); HEMOGLOBIN 13.7 g/dl (13.5-17.5); LYMPH # 1.1 10^3/uL (1.5-5.0); LYMPH % 13.4 % (24.0-44.0); MEAN CORPUSCULAR HEMOGLOBIN 30.2 pg (27.0-33.0); MEAN CORPUSCULAR HGB CONC 31.5 g/dl (32.0-36.5); MONO # 0.8 10^3/uL (0.0-0.8); MONO % 9.7 % (0.0-5.0); NEUTROPHILS # 6.3 10^3/uL (1.5-8.5); NEUTROPHILS % 74.7 % (36.0-66.0); PLATELET COUNT, AUTOMATED 310 10^3/uL (150-450); RED BLOOD COUNT 4.53 10^6/uL (4.30-6.10); WHITE BLOOD COUNT 8.5 10^3/uL (4.0-10.0)
[2019-03-24 14:29] LABS: ALBUMIN 3.5 GM/DL (3.2-5.2); ALT/SGPT 20 U/L (12-78); BILIRUBIN,TOTAL 0.4 MG/DL (0.2-1.0); BLOOD UREA NITROGEN 23 MG/DL (7-18); CALCIUM LEVEL 9.3 MG/DL (8.8-10.2); CARBON DIOXIDE LEVEL 31 MEQ/L (21-32); CHLORIDE LEVEL 107 MEQ/L (98-107); CHOLESTEROL LEVEL 133 MG/DL (<200); CHOLESTEROL RISK RATIO 3.694 (<5); CREATININE FOR GFR 0.84 MG/DL (0.70-1.30); FREE T4 0.86 NG/DL (0.76-1.46); GLOMERULAR FILTRATION RATE > 60.0 (>42); GLUCOSE, FASTING 88 MG/DL (70-100); HDL CHOLESTEROL 36 MG/DL (>40); LDL CHOLESTEROL 71 MG/DL (<100); NON-HDL-C 97 MG/DL; POTASSIUM SERUM 4.5 MEQ/L (3.5-5.1); SODIUM LEVEL 144 MEQ/L (136-145); TOTAL PROTEIN 7.3 GM/DL (6.4-8.2); TRIGLYCERIDES LEVEL 131 MG/DL (<150)
[2019-03-24 14:35] LABS: HEMOGLOBIN A1c 5.6 %
== END ==
LOC: M SFHCADAM 08:24
PROVIDERS: ATTEND Family Medicine
DX: D72.829 Elevated white blood cell count, unspecified (principal); E78.2 Mixed hyperlipidemia; R73.01 Impaired fasting glucose

== ENCOUNTER → 2019-04-13 | Outpatient (CLI) | payer MEDICARE ==
--- NOTE | 2019-04-13 08:07 | REP ---
Clinical: History of abdominal aortic aneurysm with stent repair. Technique: Real time curran scale and color evaluation using curved array transducer for. Comparison: 04/02/2018. Findings: The patient is noted to be status post endovascular stent repair extending through the abdominal aorta and bifurcation to bilateral common iliac arteries. The intraluminal stent is patent with normal appearing flow. The excluded portions of the abdominal aortic aneurysm demonstrate heterogeneous avascular material without evidence for endoleak. The aneurysm itself measures approximately 9.9 cm in length and the stent is identified extending from the level of the renal arteries into the bilateral common iliac arteries. Proximal aorta: 3.2 x 4.4 cm Aorta and renal arteries: 3.2 x 3.7 cm Mid aorta: 6.0 x 7.5 cm Distal aorta: 6.1 x 6.1 cm Right common iliac artery: 3.5 x 3.3 cm Left common iliac artery: 2.9 x 3.0 cm Impression: No change from prior examination with stable endovascular stent repair and no obvious evidence for endovascular leak. Electronically Signed by Reynaldo Mccullough MD 04/13/2019 07:59 A
== END ==
LOC: M RAD 07:12
PROVIDERS: ATTEND Family Medicine
DX: I71.4 Abdominal aortic aneurysm, without rupture (principal)

== ENCOUNTER → 2019-07-15 | Outpatient (REF) | payer MEDICARE ==
[~2019-07-15] MED LIST changes: -IRBE150T12 PO; +IRBE150T7 PO
[2019-07-16 14:06] LABS: PSA TOTAL <0.1 ng/mL (0.0-4.0)
== END ==
LOC: M LABDRWAD 12:30
PROVIDERS: ATTEND Radiology Radiation Oncology
DX: C61 Malignant neoplasm of prostate (principal)

== ENCOUNTER → 2019-10-28 | Outpatient (REF) | payer MEDICARE ==
[2019-11-23 11:36] LABS: APPEARANCE, URINE CLEAR (CLEAR); BACTERIA, URINE AUTO NEGATIVE (NEGATIVE); BILIRUBIN, URINE AUTO NEGATIVE (NEGATIVE); BLOOD, URINE BLOOD NEGATIVE (NEGATIVE); COLOR, URINE YELLOW (YELLOW); GLUCOSE, URINE (UA) AUTO NEGATIVE (NEGATIVE); KETONE, URINE AUTO NEGATIVE (NEGATIVE); LEUKOCYTE ESTERASE, URINE AUTO NEGATIVE (NEGATIVE); MUCUS, URINE SMALL (NEGATIVE); NITRITE, URINE AUTO NEGATIVE (NEGATIVE); PROTEIN, URINE AUTO NEGATIVE (NEGATIVE); RBC, URINE AUTO 6 /HPF (0-3); SPECIFIC GRAVITY URINE AUTO 1.021 (1.002-1.035); SQUAMOUS EPITHELIAL CELL UR AU 0 /HPF (0-6); UROBILINOGEN, URINE AUTO 0.2 mg/dL (0.0-2.0); WBC, URINE AUTO 2 /HPF (0-3)
[2019-11-23 14:25] LABS: BASO # 0.1 10^3/uL (0.0-0.2); BASO % 0.5 % (0.0-1.0); EOS # 0.1 10^3/uL (0.0-0.5); EOS % 1.5 % (0.0-3.0); HEMATOCRIT 46.7 % (42.0-52.0); HEMOGLOBIN 14.9 g/dl (13.5-17.5); LYMPH # 1.4 10^3/uL (1.5-5.0); LYMPH % 14.9 % (24.0-44.0); MEAN CORPUSCULAR HEMOGLOBIN 30.3 pg (27.0-33.0); MEAN CORPUSCULAR HGB CONC 31.9 g/dl (32.0-36.5); MEAN CORPUSCULAR VOLUME 94.9 fl (80.0-96.0); MONO # 0.9 10^3/uL (0.0-0.8); NEUTROPHILS % 73.9 % (36.0-66.0); PLATELET COUNT, AUTOMATED 342 10^3/uL (150-450); RED BLOOD COUNT 4.92 10^6/uL (4.30-6.10); WHITE BLOOD COUNT 9.5 10^3/uL (4.0-10.0)
[2019-12-03 06:33] LABS: ALBUMIN 3.7 GM/DL (3.2-5.2); ALT/SGPT 16 U/L (12-78); BILIRUBIN,TOTAL 0.3 MG/DL (0.2-1.0); BLOOD UREA NITROGEN 21 MG/DL (7-18); CARBON DIOXIDE LEVEL 29 MEQ/L (21-32); CHLORIDE LEVEL 108 MEQ/L (98-107); CHOLESTEROL LEVEL 116 MG/DL (<200); CHOLESTEROL RISK RATIO 3.515 (<5); GLOMERULAR FILTRATION RATE > 60.0 (>42); GLUCOSE, FASTING 86 MG/DL (70-100); HDL CHOLESTEROL 33 MG/DL (>40); LDL CHOLESTEROL 58 MG/DL (<100); MALB URINE SIEMENS 32.7 MG/L; NON-HDL-C 83 MG/DL; POTASSIUM SERUM 4.9 MEQ/L (3.5-5.1); PTH INTACT 33.4 PG/ML (18.5-88.0); SODIUM LEVEL 141 MEQ/L (136-145); TOTAL 25(OH) VITAMIN D 24.2 NG/ML (30.0-100.0); TOTAL PROTEIN 7.5 GM/DL (6.4-8.2); TRIGLYCERIDES LEVEL 123 MG/DL (<150)
== END ==
LOC: M SFHCADAM 15:37
PROVIDERS: ATTEND Family Medicine
DX: E78.2 Mixed hyperlipidemia (principal); D72.829 Elevated white blood cell count, unspecified; I10 Essential (primary) hypertension

== ENCOUNTER → 2019-11-17 | Outpatient (REF) | payer MEDICARE | LOC: M LABDRWAD 11:29 | PROVIDERS: ATTEND Nurse Practitioner | DX: C61 Malignant neoplasm of prostate (principal) ==

== ENCOUNTER → 2020-04-06 | Outpatient (REF) | payer MEDICARE ==
[2020-04-06 12:58] LABS: BASO % 0.5 % (0.0-1.0); EOS # 0.1 10^3/uL (0.0-0.5); EOS % 0.8 % (0.0-3.0); HEMATOCRIT 46.7 % (42.0-52.0); HEMOGLOBIN 14.7 g/dl (13.5-17.5); LYMPH # 1.1 10^3/uL (1.5-5.0); LYMPH % 12.4 % (24.0-44.0); MEAN CORPUSCULAR HEMOGLOBIN 29.8 pg (27.0-33.0); MEAN CORPUSCULAR HGB CONC 31.5 g/dl (32.0-36.5); MEAN CORPUSCULAR VOLUME 94.7 fl (80.0-96.0); MONO # 0.7 10^3/uL (0.0-0.8); MONO % 8.1 % (0.0-5.0); NEUTROPHILS # 6.7 10^3/uL (1.5-8.5); NEUTROPHILS % 77.7 % (36.0-66.0); PLATELET COUNT, AUTOMATED 449 10^3/uL (150-450); RED BLOOD COUNT 4.93 10^6/uL (4.30-6.10); WHITE BLOOD COUNT 8.6 10^3/uL (4.0-10.0)
[2020-04-06 13:22] LABS: HEMOGLOBIN A1c 5.3 %
[2020-04-06 13:36] LABS: ALBUMIN 3.6 GM/DL (3.2-5.2); ALT/SGPT 21 U/L (12-78); BILIRUBIN,TOTAL 0.4 MG/DL (0.2-1.0); BLOOD UREA NITROGEN 19 MG/DL (7-18); CALCIUM LEVEL 9.1 MG/DL (8.8-10.2); CARBON DIOXIDE LEVEL 30 MEQ/L (21-32); CHLORIDE LEVEL 107 MEQ/L (98-107); CHOLESTEROL LEVEL 125 MG/DL (<200); CHOLESTEROL RISK RATIO 3.125 (<5); CREATININE FOR GFR 0.85 MG/DL (0.70-1.30); GLOMERULAR FILTRATION RATE > 60.0 (>42); GLUCOSE, FASTING 84 MG/DL (70-100); HDL CHOLESTEROL 40 MG/DL (>40); LDL CHOLESTEROL 63 MG/DL (<100); NON-HDL-C 85 MG/DL; SODIUM LEVEL 140 MEQ/L (136-145); TOTAL PROTEIN 7.4 GM/DL (6.4-8.2); TRIGLYCERIDES LEVEL 112 MG/DL (<150)
== END ==
LOC: M SFHCPLAZ 08:52 → M SFHCADAM 10:22
PROVIDERS: ATTEND Family Medicine
DX: I10 Essential (primary) hypertension (principal); D72.829 Elevated white blood cell count, unspecified; R73.01 Impaired fasting glucose; R97.20 Elevated prostate specific antigen [PSA]
CPT/HCPCS: 80053; 80061; 83036; 85025; G0103

== ENCOUNTER → 2020-04-28 | Outpatient (CLI) | payer MEDICARE ==
--- NOTE | 2020-04-28 08:51 | REP ---
INDICATION: LUNG SCREENING COMPARISON: 10/23/2018 TECHNIQUE: Axial noncontrast images from the thoracic inlet to the upper abdomen using low-dose lung screening technique (LDCT). FINDINGS: Moderate emphysematous changes with bronchiectasis and scattered areas of chronic primarily subpleural scarring again noted. Small stable nodules up to 2 mm. No consolidation, suspicious nodule, or mass lesion appreciated. No effusion. No pneumothorax. Limited evaluation of the mediastinum again demonstrates mild aneurysmal dilatation of the thoracic aorta along with atherosclerotic changes to the aorta and coronary arteries. IMPRESSION: Lung-RADS category 2. Stable chronic changes. Management recommendations include annual low-dose CT surveillance. <Electronically signed by Reynaldo Mccullough > 04/28/20 0837
--- NOTE | 2020-04-28 08:54 | REP ---
INDICATION: ABDOMINAL AORTIC ANEURYSM COMPARISON: 04/13/2019 TECHNIQUE: Real time curran scale ultrasound examination using curved array transducer. FINDINGS: Stable abdominal aortic aneurysm originating at the level of the renal arteries and extending into the common iliac arteries is again appreciated measuring 6.5 x 5.9 cm diameter and 9.6 cm in craniocaudal length. No periaortic inflammatory stranding or fluid identified. Proximal aorta: Incompletely evaluated due to bowel gas Aorta at renal arteries: 3.4 x 3.6 cm Mid aorta: 4.3 x 5.6 cm Distal aorta: 6.5 x 5.9 cm Right common iliac artery: 3.1 x 3.7 cm Left common iliac artery: 3.2 x 3.5 cm IMPRESSION: Relatively stable abdominal aortic aneurysm extending into the bilateral common iliac arteries. <Electronically signed by Reynaldo Mccullough > 04/28/20 0829
== END ==
LOC: M RAD 07:56
PROVIDERS: ATTEND Family Medicine
DX: Z12.2 Encounter for screening for malignant neoplasm of respiratory organs (principal); Z87.891 Personal history of nicotine dependence; I71.4 Abdominal aortic aneurysm, without rupture; I70.0 Atherosclerosis of aorta; I25.10 Atherosclerotic heart disease of native coronary artery without angina pectoris; J43.9 Emphysema, unspecified; R91.8 Other nonspecific abnormal finding of lung field

== ENCOUNTER → 2020-05-12 | Outpatient (REF) | payer MEDICARE | LOC: M LABDRWAD 12:14 | PROVIDERS: ATTEND Radiology Radiation Oncology | DX: C61 Malignant neoplasm of prostate (principal) ==

== ENCOUNTER → 2020-09-08 | Outpatient (REF) | payer MEDICARE ==
[2020-09-08 13:23] LABS: BASO % 0.4 % (0.0-1.0); EOS # 0.1 10^3/uL (0.0-0.5); EOS % 0.9 % (0.0-3.0); HEMATOCRIT 45.9 % (42.0-52.0); HEMOGLOBIN 14.6 g/dl (13.5-17.5); LYMPH # 1.1 10^3/uL (1.5-5.0); LYMPH % 11.8 % (24.0-44.0); MEAN CORPUSCULAR HEMOGLOBIN 30.3 pg (27.0-33.0); MEAN CORPUSCULAR HGB CONC 31.8 g/dl (32.0-36.5); MEAN CORPUSCULAR VOLUME 95.2 fl (80.0-96.0); MONO # 0.9 10^3/uL (0.0-0.8); MONO % 9.8 % (2.0-8.0); NEUTROPHILS % 76.6 % (36.0-66.0); PLATELET COUNT, AUTOMATED 300 10^3/uL (150-450); RED BLOOD COUNT 4.82 10^6/uL (4.30-6.10); WHITE BLOOD COUNT 9.1 10^3/uL (4.0-10.0)
[2020-09-08 15:49] LABS: ALBUMIN 3.9 GM/DL (3.2-5.2); ALT/SGPT 17 U/L (12-78); BILIRUBIN,TOTAL 0.6 MG/DL (0.2-1.0); BLOOD UREA NITROGEN 20 MG/DL (7-18); CALCIUM LEVEL 9.2 MG/DL (8.8-10.2); CARBON DIOXIDE LEVEL 29 MEQ/L (21-32); CHLORIDE LEVEL 107 MEQ/L (98-107); CREATININE FOR GFR 0.78 MG/DL (0.70-1.30); FREE T4 0.92 NG/DL (0.76-1.46); GLOMERULAR FILTRATION RATE > 60.0 (>42); GLUCOSE, FASTING 89 MG/DL (70-100); NT-PRO BNP 82 PG/ML (<125); POTASSIUM SERUM 4.9 MEQ/L (3.5-5.1); SODIUM LEVEL 142 MEQ/L (136-145); THYROID PEROXIDASE ANTIBODY < 28.0 U/ML (<60.0); TOTAL 25(OH) VITAMIN D 21.8 NG/ML (30.0-100.0); TOTAL PROTEIN 7.5 GM/DL (6.4-8.2); VITAMIN B12 LEVEL 665 PG/ML (247-911)
== END ==
LOC: M SFHCADAM 09:14
PROVIDERS: ATTEND Family Medicine
DX: I10 Essential (primary) hypertension (principal); E78.2 Mixed hyperlipidemia; D75.89 Other specified diseases of blood and blood-forming organs

== ENCOUNTER → 2020-11-09 | Outpatient (REF) | payer MEDICARE | LOC: M LABDRWAD 12:24 | PROVIDERS: ATTEND Urology | DX: C61 Malignant neoplasm of prostate (principal) ==

== ENCOUNTER → 2021-02-15 | Outpatient (REF) | payer MEDICARE ==
[2021-02-15 13:17] LABS: ALBUMIN 3.6 GM/DL (3.2-5.2); ALT/SGPT 23 U/L (12-78); BILIRUBIN,TOTAL 0.5 MG/DL (0.2-1.0); BLOOD UREA NITROGEN 20 MG/DL (7-18); CALCIUM LEVEL 9.2 MG/DL (8.8-10.2); CARBON DIOXIDE LEVEL 29 MEQ/L (21-32); CHLORIDE LEVEL 107 MEQ/L (98-107); CHOLESTEROL LEVEL 139 MG/DL (<200); CHOLESTEROL RISK RATIO 3.756 (<5); CREATININE FOR GFR 0.76 MG/DL (0.70-1.30); GLOMERULAR FILTRATION RATE > 60.0 (>42); GLUCOSE, FASTING 87 MG/DL (70-100); HDL CHOLESTEROL 37 MG/DL (>40); LDL CHOLESTEROL 75 MG/DL (<100); NON-HDL-C 102 MG/DL; NT-PRO BNP 123 PG/ML (<125); POTASSIUM SERUM 4.7 MEQ/L (3.5-5.1); SODIUM LEVEL 143 MEQ/L (136-145); TOTAL PROTEIN 7.5 GM/DL (6.4-8.2); TRIGLYCERIDES LEVEL 137 MG/DL (<150)
[2021-02-15 13:22] LABS: MALB URINE SIEMENS 22.2 MG/L; MAU/CREAT RATIO 15.3 MCG/MG (0.0-30.0)
[2021-02-16 11:53] LABS: ALBUMIN 4.08 GM/DL (3.29-5.55); ALBUMIN % 54.4 % (55.8-66.1); ALPHA-1-GLOBULIN % 5.3 % (2.9-4.9); ALPHA-2-GLOBULINS 0.86 GM/DL (0.42-0.99); ALPHA-2-GLOBULINS % 11.5 % (7.1-11.8); BETA-1-GLOBULINS 0.44 GM/DL (0.28-0.60); BETA-1-GLOBULINS % 5.9 % (4.7-7.2); BETA-2-GLOBULINS 0.38 GM/DL (0.19-0.55); GAMMA GLOBULIN % 17.9 % (11.1-18.8); GAMMA GLOBULINS 1.34 GM/DL (0.65-1.58)
== END ==
LOC: M SFHCADAM 08:41
PROVIDERS: ATTEND Family Medicine
DX: E78.2 Mixed hyperlipidemia (principal); I10 Essential (primary) hypertension

== ENCOUNTER → 2021-04-24 | Outpatient (CLI) | payer MEDICARE | LOC: M RAD 09:17 | PROVIDERS: ATTEND Family Medicine | DX: I71.4 Abdominal aortic aneurysm, without rupture (principal); Z95.828 Presence of other vascular implants and grafts ==

== ENCOUNTER → 2021-05-08 | Outpatient (REF) | payer MEDICARE | LOC: M LABDRWAD 12:26 | PROVIDERS: ATTEND Radiology Radiation Oncology | DX: C61 Malignant neoplasm of prostate (principal) ==

== ENCOUNTER → 2021-05-19 | Outpatient (CLI) | payer MEDICARE | LOC: M RAD 08:33 | PROVIDERS: ATTEND Family Medicine | DX: Z12.2 Encounter for screening for malignant neoplasm of respiratory organs (principal); Z87.891 Personal history of nicotine dependence ==

== ENCOUNTER → 2021-08-15 | Outpatient (REF) | payer MEDICARE ==
[2021-08-15 13:00] LABS: BASO % 0.4 % (0.0-1.0); EOS # 0.1 10^3/uL (0.0-0.5); EOS % 0.7 % (0.0-3.0); HEMATOCRIT 46.2 % (42.0-52.0); HEMOGLOBIN 15.1 g/dl (13.5-17.5); LYMPH % 9.8 % (24.0-44.0); MEAN CORPUSCULAR HEMOGLOBIN 31.3 pg (27.0-33.0); MEAN CORPUSCULAR HGB CONC 32.7 g/dl (32.0-36.5); MEAN CORPUSCULAR VOLUME 95.7 fl (80.0-96.0); MONO # 0.7 10^3/uL (0.0-0.8); MONO % 7.6 % (2.0-8.0); NEUTROPHILS # 7.9 10^3/uL (1.5-8.5); NEUTROPHILS % 81.1 % (36.0-66.0); PLATELET COUNT, AUTOMATED 356 10^3/uL (150-450); RED BLOOD COUNT 4.83 10^6/uL (4.30-6.10); WHITE BLOOD COUNT 9.8 10^3/uL (4.0-10.0)
[2021-08-15 13:08] LABS: ALBUMIN 3.7 GM/DL (3.2-5.2); ALT/SGPT 13 U/L (12-78); BILIRUBIN,TOTAL 0.5 MG/DL (0.2-1.0); BLOOD UREA NITROGEN 18 MG/DL (7-18); CALCIUM LEVEL 9.2 MG/DL (8.8-10.2); CARBON DIOXIDE LEVEL 30 MEQ/L (21-32); CHLORIDE LEVEL 109 MEQ/L (98-107); CREATININE FOR GFR 0.79 MG/DL (0.70-1.30); FERRITIN 89 NG/ML (26-388); GLOMERULAR FILTRATION RATE > 60.0 (>42); GLUCOSE, FASTING 101 MG/DL (70-100); MAGNESIUM LEVEL 2.4 MG/DL (1.8-2.4); NT-PRO BNP 78 PG/ML (<125); SODIUM LEVEL 141 MEQ/L (136-145); TOTAL PROTEIN 7.2 GM/DL (6.4-8.2)
[2021-08-15 13:11] LABS: PTH INTACT 40.2 PG/ML (18.5-88.0); TOTAL 25(OH) VITAMIN D 20.9 NG/ML (30.0-100.0)
[2021-08-15 13:18] LABS: HEMOGLOBIN A1c 5.5 %
== END ==
LOC: M SFHCADAM 08:16
PROVIDERS: ATTEND Family Medicine
DX: I10 Essential (primary) hypertension (principal); R73.01 Impaired fasting glucose; E55.9 Vitamin D deficiency, unspecified; Z79.899 Other long term (current) drug therapy

== ENCOUNTER → 2021-10-03 | Outpatient (REF) | payer MEDICARE | LOC: M SFHCPLAZ 10:23 | PROVIDERS: ATTEND Family Medicine | DX: C44.319 Basal cell carcinoma of skin of other parts of face (principal) ==

== ENCOUNTER → 2021-11-09 | Outpatient (REF) | payer MEDICARE ==
[~2021-11-09] MED LIST changes: +FISH10005 PO; -FISH7.5C PO
== END ==
LOC: M SFHCADAM 13:53
PROVIDERS: ATTEND Urology
DX: C61 Malignant neoplasm of prostate (principal)

== ENCOUNTER → 2022-02-20 | Outpatient (CLI) | payer MEDICARE ==
[2022-02-20 14:05] LABS: BASO % 0.2 % (0.0-1.0); EOS # 0.1 10^3/uL (0.0-0.5); HEMOGLOBIN 14.3 g/dl (13.5-17.5); LYMPH # 1.2 10^3/uL (1.5-5.0); LYMPH % 13.4 % (24.0-44.0); MEAN CORPUSCULAR HEMOGLOBIN 30.3 pg (27.0-33.0); MEAN CORPUSCULAR HGB CONC 31.1 g/dl (32.0-36.5); MEAN CORPUSCULAR VOLUME 97.5 fl (80.0-96.0); MONO # 0.8 10^3/uL (0.0-0.8); MONO % 8.8 % (2.0-8.0); NEUTROPHILS # 6.6 10^3/uL (1.5-8.5); NEUTROPHILS % 76.3 % (36.0-66.0); PLATELET COUNT, AUTOMATED 306 10^3/uL (150-450); RED BLOOD COUNT 4.72 10^6/uL (4.30-6.10); WHITE BLOOD COUNT 8.6 10^3/uL (4.0-10.0)
[2022-02-20 14:58] LABS: HEMOGLOBIN A1c 5.2 % (4.0-6.0)
[2022-02-20 16:07] LABS: ALBUMIN 3.8 G/DL (3.2-5.2); ALT/SGPT 19 U/L (7.0-40); BILIRUBIN,TOTAL 0.6 MG/DL (0.3-1.2); BLOOD UREA NITROGEN 21 MG/DL (9-23); CALCIUM LEVEL 8.6 MG/DL (8.3-10.6); CARBON DIOXIDE LEVEL 27 MMOL/L (20-31); CHLORIDE LEVEL 105 MMOL/L (98-107); CREATININE FOR GFR 0.78 MG/DL (0.70-1.30); GLOMERULAR FILTRATION RATE > 60.0 (>42); GLUCOSE, FASTING 102 MG/DL (74-106); POTASSIUM SERUM 4.7 MMOL/L (3.5-5.1); PROSTATIC SPECIFIC AG MONITOR 0.15 NG/ML (< 4.00); SODIUM LEVEL 140 MMOL/L (136-145); TOTAL PROTEIN 6.9 G/DL (5.7-8.2)
== END ==
LOC: M LABDRWAD 08:42
PROVIDERS: ATTEND Family Medicine
DX: D75.89 Other specified diseases of blood and blood-forming organs (principal); R73.01 Impaired fasting glucose; I10 Essential (primary) hypertension; C61 Malignant neoplasm of prostate

== ENCOUNTER → 2022-05-30 | Outpatient (CLI) | payer MEDICARE | LOC: M RAD 07:26 | PROVIDERS: ATTEND Family Medicine | DX: I71.40 Abdominal aortic aneurysm, without rupture, unspecified (principal); Z87.891 Personal history of nicotine dependence; J44.9 Chronic obstructive pulmonary disease, unspecified; R91.1 Solitary pulmonary nodule ==

== ENCOUNTER → 2022-06-05 | Outpatient (REF) | payer MEDICARE | LOC: M LABDRWAD 12:53 | PROVIDERS: ATTEND Radiology Radiation Oncology | DX: C61 Malignant neoplasm of prostate (principal) ==

== ENCOUNTER → 2022-08-31 | Outpatient (REF) | payer MEDICARE ==
[2022-08-31 13:18] LABS: BASO % 0.2 % (0.0-1.0); EOS # 0.1 10^3/uL (0.0-0.5); EOS % 0.9 % (0.0-3.0); HEMATOCRIT 48.3 % (42.0-52.0); HEMOGLOBIN 15.2 g/dl (13.5-17.5); LYMPH # 1.2 10^3/uL (1.5-5.0); LYMPH % 11.6 % (24.0-44.0); MEAN CORPUSCULAR HEMOGLOBIN 30.3 pg (27.0-33.0); MEAN CORPUSCULAR HGB CONC 31.5 g/dl (32.0-36.5); MEAN CORPUSCULAR VOLUME 96.2 fl (80.0-96.0); MONO # 0.8 10^3/uL (0.0-0.8); MONO % 7.5 % (2.0-8.0); NEUTROPHILS # 7.9 10^3/uL (1.5-8.5); NEUTROPHILS % 79.3 % (36.0-66.0); PLATELET COUNT, AUTOMATED 332 10^3/uL (150-450); RED BLOOD COUNT 5.02 10^6/uL (4.30-6.10)
[2022-08-31 13:45] LABS: CPK CREATINE PHOSPHOKINASE 41 U/L (46-171)
[2022-08-31 13:46] LABS: ALBUMIN 3.9 G/DL (3.2-5.2); ALKALINE PHOSPHATASE 68 U/L (46-116); ALT/SGPT 13 U/L (7.0-40); AST/SGOT 10 U/L (<34); BILIRUBIN,TOTAL 0.6 MG/DL (0.3-1.2); BLOOD UREA NITROGEN 20 MG/DL (9-23); CALCIUM LEVEL 9.4 MG/DL (8.3-10.6); CARBON DIOXIDE LEVEL 30 MMOL/L (20-31); CHLORIDE LEVEL 106 MMOL/L (98-107); CHOLESTEROL LEVEL 122 MG/DL (<200); CHOLESTEROL RISK RATIO 3.64 (<5); CREATININE FOR GFR 0.84 MG/DL (0.70-1.30); FREE T4 1.04 NG/DL (0.89-1.76); GLOMERULAR FILTRATION RATE > 60.0 (>42); GLUCOSE, FASTING 88 MG/DL (74-106); HDL CHOLESTEROL 33.5 MG/DL (>40); LDL CHOLESTEROL 60.3 MG/DL (<100); NON-HDL-C 88.5 MG/DL; POTASSIUM SERUM 5.2 MMOL/L (3.5-5.1); PROSTATIC SPECIFIC AG MONITOR 0.11 NG/ML (< 4.00); PTH INTACT 29.5 PG/ML (18.5-88.0); SODIUM LEVEL 142 MMOL/L (136-145); THYROID STIMULATING HORMONE 3.558 uIU/ML (0.55-4.78); TRIGLYCERIDES LEVEL 141 MG/DL (<150)
[2022-08-31 13:47] LABS: TOTAL 25(OH) VITAMIN D 22.8 NG/ML (20.0-100.0); VITAMIN B12 LEVEL 233 PG/ML (211-911)
== END ==
LOC: M SFHCADAM 08:17
PROVIDERS: ATTEND Family Medicine
DX: E55.9 Vitamin D deficiency, unspecified (principal); D75.89 Other specified diseases of blood and blood-forming organs; E78.2 Mixed hyperlipidemia; C61 Malignant neoplasm of prostate; Z79.899 Other long term (current) drug therapy
CPT/HCPCS: 80053; 80061; 82306; 82550; 82607; 83970; 84153; 84439; 84443; 85025; G0103

== ENCOUNTER → 2022-11-09 | Outpatient (REF) | payer MEDICARE | LOC: M LABDRWAD 12:21 | PROVIDERS: ATTEND Urology | DX: C61 Malignant neoplasm of prostate (principal) ==

== ENCOUNTER → 2023-03-04 | Outpatient (CLI) | payer MEDICARE ==
[2023-03-04 14:22] LABS: BASO % 0.5 % (0.0-1.0); EOS # 0.1 10^3/uL (0.0-0.5); EOS % 1.1 % (0.0-3.0); HEMATOCRIT 48.1 % (42.0-52.0); HEMOGLOBIN 15.3 g/dl (13.5-17.5); LYMPH # 1.3 10^3/uL (1.5-5.0); LYMPH % 14.7 % (24.0-44.0); MEAN CORPUSCULAR HEMOGLOBIN 30.5 pg (27.0-33.0); MEAN CORPUSCULAR HGB CONC 31.8 g/dl (32.0-36.5); MEAN CORPUSCULAR VOLUME 95.8 fl (80.0-96.0); MONO # 0.8 10^3/uL (0.0-0.8); MONO % 8.7 % (2.0-8.0); NEUTROPHILS # 6.6 10^3/uL (1.5-8.5); NEUTROPHILS % 74.7 % (36.0-66.0); PLATELET COUNT, AUTOMATED 361 10^3/uL (150-450); RED BLOOD COUNT 5.02 10^6/uL (4.30-6.10); WHITE BLOOD COUNT 8.8 10^3/uL (4.0-10.0)
[2023-03-04 14:59] LABS: HEMATOCRIT 48.1 % (42.0-52.0)
[2023-03-04 15:01] LABS: ALBUMIN 3.5 G/DL (3.2-5.2); ALKALINE PHOSPHATASE 64 U/L (46-116); ALT/SGPT 14 U/L (7.0-40); AST/SGOT 14 U/L (<34); BILIRUBIN,TOTAL 0.4 MG/DL (0.3-1.2); BLOOD UREA NITROGEN 24 MG/DL (9-23); CALCIUM LEVEL 9.1 MG/DL (8.3-10.6); CARBON DIOXIDE LEVEL 28 MMOL/L (20-31); CHLORIDE LEVEL 104 MMOL/L (98-107); CREATININE FOR GFR 0.83 MG/DL (0.70-1.30); FERRITIN 70.1 NG/ML (10.5-307.3); GLOMERULAR FILTRATION RATE > 60.0 (>42); GLUCOSE, FASTING 92 MG/DL (74-106); POTASSIUM SERUM 4.7 MMOL/L (3.5-5.1); SODIUM LEVEL 138 MMOL/L (136-145); TOTAL PROTEIN 6.9 G/DL (5.7-8.2); VITAMIN B12 LEVEL 725 PG/ML (211-911)
== END ==
LOC: M LABDRWAD 09:09
PROVIDERS: ATTEND Family Medicine
DX: E53.8 Deficiency of other specified B group vitamins (principal); I10 Essential (primary) hypertension; Z86.39 Personal history of other endocrine, nutritional and metabolic disease

== ENCOUNTER → 2023-03-07 | Outpatient (REF) | payer MEDICARE | LOC: M SFHCPLAZ 09:12 | PROVIDERS: ATTEND Family Medicine | DX: I10 Essential (primary) hypertension (principal); R73.01 Impaired fasting glucose; E78.2 Mixed hyperlipidemia ==

== ENCOUNTER → 2023-06-01 | Outpatient (CLI) | payer MEDICARE ==
[~2023-06-01] MED LIST changes: +CALC0.0017 TOP; -CALC0.009 TOP; +IRBE150T27 PO; -IRBE150T7 PO
== END ==
LOC: M RAD 07:20
PROVIDERS: ATTEND Family Medicine
DX: Z87.891 Personal history of nicotine dependence (principal)

== ENCOUNTER → 2023-06-26 | Outpatient (REF) | payer MEDICARE | LOC: M LABDRWAD 13:19 | PROVIDERS: ATTEND Radiology Radiation Oncology | DX: C61 Malignant neoplasm of prostate (principal) ==

== ENCOUNTER → 2023-06-26 | Outpatient (CLI) | payer MEDICARE | LOC: M RAD 07:35 | PROVIDERS: ATTEND Family Medicine | DX: Z12.2 Encounter for screening for malignant neoplasm of respiratory organs (principal); Z87.891 Personal history of nicotine dependence ==

== ENCOUNTER → 2023-09-02 | Outpatient (REF) | payer MEDICARE ==
[2023-09-02 13:10] LABS: BASO % 0.3 % (0.0-1.0); EOS # 0.1 10^3/uL (0.0-0.5); EOS % 1.3 % (0.0-3.0); HEMATOCRIT 47.7 % (42.0-52.0); HEMOGLOBIN 15.5 g/dl (13.5-17.5); LYMPH # 1.3 10^3/uL (1.5-5.0); LYMPH % 12.8 % (24.0-44.0); MEAN CORPUSCULAR HEMOGLOBIN 31.3 pg (27.0-33.0); MEAN CORPUSCULAR HGB CONC 32.5 g/dl (32.0-36.5); MEAN CORPUSCULAR VOLUME 96.2 fl (80.0-96.0); MONO # 0.8 10^3/uL (0.0-0.8); MONO % 7.9 % (2.0-8.0); NEUTROPHILS # 7.8 10^3/uL (1.5-8.5); NEUTROPHILS % 77.3 % (36.0-66.0); PLATELET COUNT, AUTOMATED 344 10^3/uL (150-450); RED BLOOD COUNT 4.96 10^6/uL (4.30-6.10); WHITE BLOOD COUNT 10.1 10^3/uL (4.0-10.0)
[2023-09-02 13:13] LABS: ALBUMIN 3.5 G/DL (3.2-5.2); ALKALINE PHOSPHATASE 72 U/L (46-116); ALT/SGPT 13 U/L (7.0-40); AST/SGOT 10 U/L (<34); BILIRUBIN,TOTAL 0.5 MG/DL (0.3-1.2); BLOOD UREA NITROGEN 19 MG/DL (9-23); CALCIUM LEVEL 9.4 MG/DL (8.3-10.6); CARBON DIOXIDE LEVEL 30 MMOL/L (20-31); CHLORIDE LEVEL 109 MMOL/L (98-107); CHOLESTEROL LEVEL 115 MG/DL (<200); CHOLESTEROL RISK RATIO 3.39 (<5); CREATININE FOR GFR 0.85 MG/DL (0.70-1.30); GLOMERULAR FILTRATION RATE > 60.0 (>42); GLUCOSE, FASTING 101 MG/DL (74-106); HDL CHOLESTEROL 33.9 MG/DL (>40); LDL CHOLESTEROL 54.1 MG/DL (<100); NON-HDL-C 81.1 MG/DL; POTASSIUM SERUM 4.8 MMOL/L (3.5-5.1); SODIUM LEVEL 141 MMOL/L (136-145); TOTAL PROTEIN 6.9 G/DL (5.7-8.2); TRIGLYCERIDES LEVEL 135 MG/DL (<150)
[2023-09-02 13:14] LABS: THYROID STIMULATING HORMONE 5.758 uIU/ML (0.55-4.78)
[2023-09-02 13:15] LABS: FREE T4 1.05 NG/DL (0.89-1.76)
[2023-09-02 13:40] LABS: HEMOGLOBIN A1c 5.3 % (4.0-6.0)
== END ==
LOC: M LABDRWAD 12:18
PROVIDERS: ATTEND Family Medicine
DX: I10 Essential (primary) hypertension (principal); R73.01 Impaired fasting glucose; E78.2 Mixed hyperlipidemia

== ENCOUNTER → 2023-09-17 | Outpatient (CLI) | payer MEDICARE | LOC: M PLAIMG 08:12 | PROVIDERS: ATTEND Family Medicine | DX: I77.810 Thoracic aortic ectasia (principal) ==

== ENCOUNTER → 2024-01-20 | Outpatient (REF) | payer MEDICARE | LOC: M LABDRWAD 12:48 | PROVIDERS: ATTEND Urology | DX: C61 Malignant neoplasm of prostate (principal) ==

== ENCOUNTER → 2024-03-09 | Outpatient (REF) | payer MEDICARE ==
[2024-03-09 13:52] LABS: ALBUMIN 3.5 G/DL (3.2-5.2); ALKALINE PHOSPHATASE 73 U/L (40-129); ALT/SGPT 11 U/L (7.0-40); AST/SGOT 12 U/L (<34); BILIRUBIN,TOTAL 0.4 MG/DL (0.3-1.2); BLOOD UREA NITROGEN 25 MG/DL (9-23); CALCIUM LEVEL 9.5 MG/DL (8.3-10.6); CARBON DIOXIDE LEVEL 30 MMOL/L (20-31); CHLORIDE LEVEL 108 MMOL/L (98-107); CREATININE FOR GFR 0.76 MG/DL (0.70-1.30); FREE T4 1.12 NG/DL (0.89-1.76); GLOMERULAR FILTRATION RATE > 60.0 (>42); GLUCOSE, FASTING 89 MG/DL (74-106); POTASSIUM SERUM 4.7 MMOL/L (3.5-5.1); SODIUM LEVEL 143 MMOL/L (136-145); VITAMIN B12 LEVEL 861 PG/ML (211-911)
[2024-03-09 13:53] LABS: THYROID STIMULATING HORMONE 4.292 uIU/ML (0.55-4.78)
[2024-03-09 13:54] LABS: BASO % 0.5 % (0.0-1.0); EOS # 0.1 10^3/uL (0.0-0.5); EOS % 1.4 % (0.0-3.0); FERRITIN 92.6 NG/ML (10.5-307.3); HEMATOCRIT 45.6 % (42.0-52.0); HEMOGLOBIN 14.7 g/dl (13.5-17.5); LYMPH # 1.2 10^3/uL (1.5-5.0); LYMPH % 14.3 % (24.0-44.0); MEAN CORPUSCULAR HEMOGLOBIN 31.2 pg (27.0-33.0); MEAN CORPUSCULAR HGB CONC 32.2 g/dl (32.0-36.5); MEAN CORPUSCULAR VOLUME 96.8 fl (80.0-96.0); MONO # 0.8 10^3/uL (0.0-0.8); MONO % 9.3 % (2.0-8.0); NEUTROPHILS # 6.4 10^3/uL (1.5-8.5); NEUTROPHILS % 74.2 % (36.0-66.0); PLATELET COUNT, AUTOMATED 318 10^3/uL (150-450); RED BLOOD COUNT 4.71 10^6/uL (4.30-6.10); WHITE BLOOD COUNT 8.6 10^3/uL (4.0-10.0)
[2024-03-09 14:10] LABS: HEMOGLOBIN A1c 5.2 % (4.0-6.0)
== END ==
LOC: M SFHCPLAZ 08:55
PROVIDERS: ATTEND Family Medicine
DX: I10 Essential (primary) hypertension (principal); R73.01 Impaired fasting glucose; E78.2 Mixed hyperlipidemia; E53.8 Deficiency of other specified B group vitamins; Z79.899 Other long term (current) drug therapy

== ENCOUNTER → 2024-06-24 | Outpatient (REF) | payer MEDICARE | LOC: M LABDRWAD 17:10 | PROVIDERS: ATTEND Radiology Radiation Oncology | DX: C61 Malignant neoplasm of prostate (principal) ==

== ENCOUNTER → 2024-08-07 | Outpatient (CLI) | payer MEDICARE ==
[~2024-08-07] MED LIST changes: -FLOM0.4C39 PO; +TAMS-18 PO
== END ==
LOC: M RAD 09:45
PROVIDERS: ATTEND Family Medicine
DX: I71.43 Infrarenal abdominal aortic aneurysm, without rupture (principal); Z95.828 Presence of other vascular implants and grafts

== ENCOUNTER → 2025-01-18 | Outpatient (REF) | payer MEDICARE | LOC: M SFHCADAM 10:17 | PROVIDERS: ATTEND Urology | DX: C61 Malignant neoplasm of prostate (principal) ==

== ENCOUNTER → 2025-03-15 | Outpatient (REF) | payer MEDICARE ==
[~2025-03-15] MED LIST changes: -FISH10005 PO; +FISH1CAP38 PO
[2025-03-15 14:27] LABS: BASO # 0.0 10^3/uL (0.0-0.2); BASO % 0.4 % (0.0-1.0); EOS # 0.1 10^3/uL (0.0-0.5); EOS % 1.0 % (0.0-3.0); LYMPH # 1.3 10^3/uL (1.5-5.0); LYMPH % 12.3 % (24.0-44.0); MONO # 0.8 10^3/uL (0.0-0.8); MONO % 7.4 % (2.0-8.0); NEUTROPHILS # 8.5 10^3/uL (1.5-8.5); NEUTROPHILS % 78.4 % (36.0-66.0); PLATELET COUNT, AUTOMATED 345 10^3/uL (150-450)
[2025-03-15 14:45] LABS: ESTIMATED AVERAGE GLUCOSE 105.0 MG/DL (60-110)
[2025-03-15 15:03] LABS: ALT/SGPT 15.0 U/L (7.0-40); AST/SGOT 20.0 U/L (<34); CALCIUM LEVEL 9.7 MG/DL (8.3-10.6); CARBON DIOXIDE LEVEL 31.0 MMOL/L (20-31); CHLORIDE LEVEL 107.0 MMOL/L (98-107); CHOLESTEROL LEVEL 138.0 MG/DL (<200); CHOLESTEROL RISK RATIO 3.58 (<5); CREATININE FOR GFR 0.87 MG/DL (0.70-1.30); GLOMERULAR FILTRATION RATE 89.4 (>42); LDL CHOLESTEROL 72.9 MG/DL (<100); NON-HDL-C 99.5 MG/DL; POTASSIUM SERUM 4.9 MMOL/L (3.5-5.1); PTH INTACT 31.5 PG/ML (18.5-88.0); SODIUM LEVEL 145.0 MMOL/L (136-145); TRIGLYCERIDES LEVEL 133.0 MG/DL (<150)
[2025-03-15 15:04] LABS: FREE T4 1.28 NG/DL (0.89-1.76)
[2025-03-15 15:07] LABS: TOTAL 25(OH) VITAMIN D 35.8 NG/ML (20.0-100.0)
== END ==
LOC: M SFHCPLAZ 09:12
PROVIDERS: ATTEND Family Medicine
DX: I10 Essential (primary) hypertension (principal); R73.01 Impaired fasting glucose; E78.2 Mixed hyperlipidemia; E53.8 Deficiency of other specified B group vitamins; E55.9 Vitamin D deficiency, unspecified; Z86.39 Personal history of other endocrine, nutritional and metabolic disease